=== PATIENT | male | born 1960 | race Caucasian/White ===

== ENCOUNTER 2017-10-31 08:59 | Day surgery (SDC) | payer BC ==
[~2017-10-31 08:59] MED LIST: Lactated Ringers 1,000 ML IV SCH; Sodium Chloride 0.9% 10 ML Syringe FLUSH PRN; Sodium Chloride 0.9% 2.5 ML Syringe FLUSH PRN; ceFAZolin 1 GM in Premix Bag 1 BAG IV ONE
--- NOTE | 2017-10-31 09:58 | PCM.PREANE ---
Preanesthetic Assessment - Anesthesia/Transfusion/Family Hx Anesthesia History: Prior Anesthesia Without Reaction Other Type of Anesthesia Reaction Comment: "broken teeth during anesthesia, bit down on tube to hard" Family History of Anesthesia Reaction: No Transfusion History: No Prior Transfusion(s) - Review of Systems General: No Symptoms Pulmonary: No Symptoms Cardiovascular: No Symptoms Gastrointestinal: No Symptoms Neurological: No Symptoms Other: Reports: None - Physical Assessment Height: 1.8 m Weight: 91.172 kg ASA Class: 2 Airway Class: Mallampati = 2 Dentition: Reports: Broken Tooth/Teeth, Missing Tooth/Teeth Lungs: Clear to Auscultation, Normal Respiratory Effort Cardiovascular: Regular Rate, Regular Rhythm - Allergies Allergies/Adverse Reactions: Allergies Allergy/AdvReac Type Severity Reaction Status Date / Time No Known Allergies Allergy Verified 10/05/16 08:03 - Anesthesia Plan Pre-Op Medication Ordered: None - Acknowledgements Anesthesia Type Planned: General Anesthesia Pt an Appropriate Candidate for the Planned Anesthesia: Yes Alternatives and Risks of Anesthesia Discussed w Pt/Guardian: Yes Pt/Guardian Understands and Agrees with Anesthesia Plan: Yes PreAnesthesia Questionnaire - Past Health History Medical/Surgical History: Denies Medical/Surgical History HEENT History: Reports: Hard of Hearing, Other (See Below) Other HEENT History: Teeth some caps 'on pretty good' my teeth have some problems, with broken tooth during first two anesthesias ( one porcelan cap one decayded tooth), Poor Hearing RIGHT Cardiovascular History: Reports: None Respiratory History: Reports: SOB Other Respiratory History: REports 40 year history of smoking, currently smokes 5 to 7 cigarettes per day, "trying to cut back" states had pneumonia on Oct 23 2016 Gastrointestinal History: Reports: GERD, Other (See Below) Other Gastrointestinal History: Occasional heartburn treat with TUMS Genitourinary History: Reports: Hydronephrosis, Other (See Below) Other Genitourinary History: cancer of rt renal calyx, transitional cell carcinoma of ureter Musculoskeletal History: Reports: Fracture Other Musculoskeletal History: Fracture to Spine ("elvis area was broken off") Neurological History: Reports: TIA Other Neuro History: "TIA x2 in 2015" Psychiatric History: Reports: Addiction Other Psychiatric History: Reports 30 yr recovery from Cocaine addiction Endocrine/Metabolic History: Reports: None Hematologic History: Reports: None Immunologic History: Reports: None Oncologic (Cancer) History: Reports: Other (See Below) Other Oncologic History: Ureteral Tumor Path report 02/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, Grade II/III, cancer of rt renal calyx Dermatologic History: Reports: None - Infectious Disease History Infectious Disease History: Reports: None - Past Surgical History Head Surgeries/Procedures: Reports: None Male Surgical History: Reports: Other (See Below) Other Male Surgeries/Procedures: Placement of Right Nephroureteral Stent, 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, cysto and ureterosocpy on rt in october 2016, states multiple cystoscopies and ureteroscopies - SUBSTANCE USE Smoking Status *Q: Current Every Day Smoker Tobacco Use Within Last Twelve Months: Cigarettes Second Hand Smoke Exposure: No Days Per Week of Alcohol Use: 0 Number of Drinks Per Day: 1 Total Drinks Per Week: 0 Recreational Drug Use History: No Recreational Drug Type: Reports: Cocaine Recreational Drug Last Use: 30 years ago, been recovering - HOME MEDS Home Medications: Home Meds Aspirin [Aspirin EC] 81 mg PO ACBREAKFAST #30 tablet. 10/06/16 [Rx] Calcium Carbonate [Tums] 1 tab.chew CHEW ASDIRECTED PRN 11/17/16 [History] - CURRENT (IN HOUSE) MEDS Current Meds: Current Medications Lactated Ringer's (Ringers, Lactated) 1,000 mls @ 100 mls/hr IV ASDIRECTED [facility] Sodium Chloride (Saline Flush) 10 ml FLUSH ASDIRECTED PRN PRN Reason: Keep Vein Open Sodium Chloride (Saline Flush) 2.5 ml FLUSH ASDIRECTED PRN PRN Reason: Keep Vein Open Discontinued Medications Cefazolin Sodium/Dextrose 1 gm (/ Premix) 50 mls @ 100 mls/hr IV ONCALL ONE Stop: 10/31/17 07:29
[2017-10-31] MEDS ORDERED: Midazolam 1 MG/ML 2 ML SDV ONE (11:23)
[2017-10-31] MEDS ORDERED: Lidocaine 2% 5 ML SDV ONE (11:23)
[2017-10-31] MEDS ORDERED: fentaNYL 250 MCG/5 ML SDV ONE (11:23)
[2017-10-31] MEDS ORDERED: Propofol 200 MG/20 ML SDV ONE ×3 (11:23→12:47)
[2017-10-31] MEDS ORDERED: Iopamidol 408 MG/ML 50 ML SDV ONE (11:33)
[2017-10-31] MEDS ORDERED: Rocuronium 10 MG/ML 10 ML Syringe ONE (12:04)
[2017-10-31] MEDS ORDERED: Neostigmine Methylsulfate 1 MG/ML 5 ML Syringe ONE (12:04)
[2017-10-31] MEDS ORDERED: Sugammadex Sodium 200 MG/2 ML VIAL ONE (13:27)
--- NOTE | 2017-10-31 14:56 | PCM.POSTAN ---
POST ANESTHESIA ASSESSMENT - MENTAL STATUS Mental Status: Alert, Oriented - RESPIRATORY Respiratory Status: Respiratory Rate WNL, Airway Patent, O2 Saturation Stable - CARDIOVASCULAR CV Status: Pulse Rate WNL, Blood Pressure Stable - GASTROINTESTINAL GI Status: No Symptoms - POST OP HYDRATION Hydration Status: Adequate & Stable
--- NOTE | 2017-10-31 14:57 | PCM48HPAN ---
Post Anesthesia Note - EVALUATION WITHIN 48HRS OF ANESTHETIC Vital Signs in Normal Range: Yes Patient Participated in Evaluation: Yes Respiratory Function Stable: Yes Airway Patent: Yes Cardiovascular Function Stable: Yes Hydration Status Stable: Yes Pain Control Satisfactory: Yes Nausea and Vomiting Control Satisfactory: Yes Mental Status Recovered: Yes
[2017-10-31 15:53] VITALS: BP 123/65
--- NOTE | 2017-10-31 16:28 | CR ---
EXAMINATION: Ureteral stent insertion HISTORY: Bladder tumor COMPARISON: CT dated 10/24/2017 TECHNIQUE: Single fluoroscopic image provided FINDINGS/IMPRESSION: Single fluoroscopic image demonstrates a partial visualized right ureteral stent .
--- NOTE | 2017-10-31 21:03 | OR ---
SURGEON: Saurabh Davis M.D. DATE OF PROCEDURE: 10/31/2017 PREOPERATIVE DIAGNOSES: History of ureteral and right renal pelvis tumors and history of bladder tumors. POSTOPERATIVE DIAGNOSES: History of ureteral and right renal pelvis tumors and history of bladder tumors. OPERATION PERFORMED: Cystoscopy, right ureteroscopy, right renoscopy, tumor ablation of ureteral tumors, biopsy of right renal pelvis tumor and partial ablation. DESCRIPTION OF PROCEDURE: The patient was given general anesthesia, placed in dorsal lithotomy position, prepped and draped in sterile drapes. Cystourethroscopy was done, showed multiple papillary bladder tumors. Ureteroscopy was done alongside the guidewire that was placed in. The right ureter had three papillary tumors that were destroyed using the ureteroscopic Bugbee electrode. The flexible ureteroscope was then advanced in the right ureter all the way up into the renal pelvis, which showed a mid calyceal papillary tumor. Pictures of that were taken and biopsy was done. Attempts at fulgurating the tumor were not adequate. With that done, a 7-[place] 26 centimeter double-J stent was placed in. The bladder tumors were then either resected or fulgurated. The bladder was emptied and the patient was moved to recovery room in good condition. PLAN: I will see him next week. The specimens that were submitted to pathology was urine cytology from the right renal pelvis, renal pelvis tumor biopsy, and bladder tumors. The plan is to start mitomycin therapy in the bladder by having the double-J stent in. The treatment should reach the renal pelvis. We will repeat the studies in three months. BALDO / RED /[id number]
== END 2017-10-31 15:30 | disposition home or self-care (01) ==
LOC: MW.SDS 08:59
PROVIDERS: ATTEND Urology
DX: C65.1 Malignant neoplasm of right renal pelvis (principal); C67.9 Malignant neoplasm of bladder, unspecified; R31.0 Gross hematuria; R35.1 Nocturia; F17.210 Nicotine dependence, cigarettes, uncomplicated; K21.9 Gastro-esophageal reflux disease without esophagitis; C66.1 Malignant neoplasm of right ureter; Z79.82 Long term (current) use of aspirin; Z86.73 Personal history of transient ischemic attack (TIA), and cerebral infarction without residual deficits; Z98.890 Other specified postprocedural states
CPT/HCPCS: 52354; 76000; C1769; C1874; C9399; J0690; J2250; J3010; J7120; Q9966; 00910; 88305; J2704

== ENCOUNTER 2018-02-13 07:29 | Day surgery (SDC) | payer BC ==
[~2018-02-13 07:29] MED LIST changes: -Sodium Chloride 0.9% 10 ML Syringe FLUSH PRN; +ceFAZolin 1 GM in Premix Bag 1 BAG IV SCH
[2018-02-13] MEDS ORDERED: Iopamidol 408 MG/ML 50 ML SDV ONE (07:32)
--- NOTE | 2018-02-13 07:58 | PCM.PREANE ---
Preanesthetic Assessment - Anesthesia/Transfusion/Family Hx Anesthesia History: Prior Anesthesia Without Reaction Other Type of Anesthesia Reaction Comment: "broken teeth during anesthesia, bit down on tube to hard" Family History of Anesthesia Reaction: No Transfusion History: No Prior Transfusion(s) - Review of Systems General: No Symptoms Pulmonary: No Symptoms Cardiovascular: No Symptoms Gastrointestinal: No Symptoms Neurological: No Symptoms Other: Reports: None - Physical Assessment NPO Status Date: 02/12/18 Height: 1.8 m Weight: 91.172 kg ASA Class: 2 Airway Class: Mallampati = 2 Dentition: Reports: Missing Tooth/Teeth ROM/Head Extension: Full Lungs: Clear to Auscultation, Normal Respiratory Effort Cardiovascular: Regular Rate, Regular Rhythm - Allergies Allergies/Adverse Reactions: Allergies Allergy/AdvReac Type Severity Reaction Status Date / Time No Known Allergies Allergy Verified 02/02/18 10:21 - Anesthesia Plan Pre-Op Medication Ordered: None - Acknowledgements Anesthesia Type Planned: General Anesthesia Pt an Appropriate Candidate for the Planned Anesthesia: Yes Alternatives and Risks of Anesthesia Discussed w Pt/Guardian: Yes Pt/Guardian Understands and Agrees with Anesthesia Plan: Yes Additional Comments: Has GERD, uses Zantac. PreAnesthesia Questionnaire - Past Health History Medical/Surgical History: Denies Medical/Surgical History HEENT History: Reports: Hard of Hearing, Other (See Below) Other HEENT History: Teeth some caps 'on pretty good' my teeth have some problems, with broken teeth during first two anesthesias ( one porcelan cap one decayded tooth), Poor Hearing RIGHT Cardiovascular History: Reports: None Respiratory History: Reports: SOB Other Respiratory History: REports 40 year history of smoking, currently smokes 5 to 7 cigarettes per day, "trying to cut back" states had pneumonia on Oct 23 2016 Gastrointestinal History: Reports: GERD, Other (See Below) Other Gastrointestinal History: Occasional heartburn treat with zantac Genitourinary History: Reports: Hydronephrosis, Other (See Below) Other Genitourinary History: cancer of rt renal calyx, transitional cell carcinoma of ureter Musculoskeletal History: Reports: Fracture Other Musculoskeletal History: Fracture to Spine ("elvis area was broken off") Neurological History: Reports: TIA Other Neuro History: "TIA x2 in 2016" Psychiatric History: Reports: Addiction Other Psychiatric History: Reports 30 yr recovery from Cocaine addiction Endocrine/Metabolic History: Reports: None Hematologic History: Reports: None Immunologic History: Reports: None Oncologic (Cancer) History: Reports: Bladder, Other (See Below) Other Oncologic History: Ureteral Tumor Path report 02/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, Grade II/III, cancer of rt renal calyx Dermatologic History: Reports: None - Infectious Disease History Infectious Disease History: Reports: None - Past Surgical History Head Surgeries/Procedures: Reports: None Male Surgical History: Reports: TURBT-Transurethral Resection of Bladder Tumor, Other (See Below) Other Male Surgeries/Procedures: Placement of Right Nephroureteral Stent, 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, cysto and ureterosocpy on rt in october 2016, states multiple cystoscopies and ureteroscopies - SUBSTANCE USE Smoking Status *Q: Current Every Day Smoker Tobacco Use Within Last Twelve Months: Cigarettes Second Hand Smoke Exposure: No Days Per Week of Alcohol Use: 0 Number of Drinks Per Day: 1 Total Drinks Per Week: 0 Recreational Drug Use History: Yes Recreational Drug Type: Reports: Cocaine Recreational Drug Last Use: 30 years ago, been recovering - HOME MEDS Home Medications: Home Meds Aspirin [Aspirin EC] 81 mg PO ACBREAKFAST #30 tablet. 10/06/16 [Rx] Ibuprofen 4 tab PO ASDIRECTED PRN 02/02/18 [History] Ranitidine HCl [Zantac] 1 tab PO ASDIRECTED PRN 02/02/18 [History] - CURRENT (IN HOUSE) MEDS Current Meds: Current Medications Cefazolin Sodium/Dextrose 1 gm (/ Premix) 50 mls @ 100 mls/hr IV Q8H [facility] Lactated Ringer's (Ringers, Lactated) 1,000 mls @ 100 mls/hr IV ASDIRECTED [facility] Last Admin: 02/13/18 07:45 Dose: 100 mls/hr Sodium Chloride (Saline Flush) 2.5 ml FLUSH ASDIRECTED PRN PRN Reason: Keep Vein Open Discontinued Medications Iopamidol (Isovue-200 (41%)) Confirm Administered Dose 50 ml .ROUTE .STK-MED ONE Stop: 02/13/18 07:33
[2018-02-13] MEDS ORDERED: Lidocaine 2% 5 ML SDV ONE (08:29)
[2018-02-13] MEDS ORDERED: Ondansetron 4 MG/2 ML SDV ONE (08:29)
[2018-02-13] MEDS ORDERED: Propofol 200 MG/20 ML SDV ONE (08:30)
[2018-02-13] MEDS ORDERED: fentaNYL 100 MCG/2 ML SDV ONE ×2 (08:30→09:58)
[2018-02-13] MEDS ORDERED: Midazolam 1 MG/ML 2 ML SDV ONE (08:30)
[2018-02-13] MEDS ORDERED: ceFAZolin/Dextrose,Iso-Osmotic 2 GM/50 ML Duplex Bag IV ONE (09:06)
[2018-02-13] MEDS ORDERED: fentaNYL 100 MCG/2 ML SDV IVPUSH PRN (09:06)
[2018-02-13] MEDS ORDERED: Rocuronium 10 MG/ML 10 ML Syringe ONE (09:25)
[2018-02-13] MEDS ORDERED: Dexamethasone 4 MG/ML 5 ML MDV ONE (09:25)
[2018-02-13] MEDS ORDERED: Succinylcholine 200 MG/10 ML MDV ONE (09:25)
[2018-02-13] MEDS ORDERED: ePHEDrine 50 MG/ML SDV ONE (09:29)
[2018-02-13] MEDS ORDERED: Glycopyrrolate 0.2 MG/ML SDV ONE (09:59)
[2018-02-13] MEDS ORDERED: Neostigmine Methylsulfate 1 MG/ML 5 ML Syringe ONE (09:59)
[2018-02-13] MEDS ORDERED: Sugammadex Sodium 200 MG/2 ML VIAL ONE (10:04)
--- NOTE | 2018-02-13 10:48 | PCM48HPAN ---
Post Anesthesia Note - EVALUATION WITHIN 48HRS OF ANESTHETIC Vital Signs in Normal Range: Yes Patient Participated in Evaluation: Yes Respiratory Function Stable: Yes Airway Patent: Yes Cardiovascular Function Stable: Yes Hydration Status Stable: Yes Pain Control Satisfactory: Yes Nausea and Vomiting Control Satisfactory: Yes Mental Status Recovered: Yes Resp Rate: 16
[2018-02-13 11:13] VITALS: BP 102/64
--- NOTE | 2018-02-13 13:18 | OR ---
SURGEON: Saurabh Davis M.D. DATE OF PROCEDURE: 02/13/2018 PREOPERATIVE DIAGNOSIS: Papillary right renal pelvis tumor, about 1 cm. POSTOPERATIVE DIAGNOSIS: Papillary right renal pelvis tumor, about 1 cm. OPERATION: Cystoscopy, double-J stent removal, and renoscopy with tumor ablation using the Bugbee electrode. DESCRIPTION OF PROCEDURE: The patient is placed in dorsal lithotomy position. After adequate general anesthesia, cystourethroscopy was done. The inside of the bladder was examined, showed no recurrent tumors. The double-J stent was removed. A guidewire was advanced in the right ureter over which the flexible ureteroscope was advanced down in the renal pelvis, the tumor was identified and ablated using coagulating electrode. With that done, the procedure was terminated and the bladder was emptied and the patient was moved to recovery room in good condition. BALDO MOON /[id number]
--- NOTE | 2018-02-13 16:24 | CR ---
EXAMINATION: Retrograde pyelogram HISTORY: Ureteroscopy COMPARISON: CT dated 10/24/2017 TECHNIQUE: Single fluoroscopic image provided. FINDINGS/IMPRESSION: Operative control films demonstrate opacification of the right renal collecting system which appears moderately dilated.
== END 2018-02-13 11:20 | disposition home or self-care (01) ==
LOC: MW.SDS 07:29
PROVIDERS: ATTEND Urology
DX: D41.11 Neoplasm of uncertain behavior of right renal pelvis (principal); Z79.82 Long term (current) use of aspirin
CPT/HCPCS: 52354; 76000; J0330; J0690; J1100; J2250; J2405; J3010; J3490; J7120; Q9966; 00912; C1769; J2704

== ENCOUNTER 2018-05-15 06:38 | Day surgery (SDC) | payer BC ==
[~2018-05-15 06:38] MED LIST changes: +Sodium Chloride 0.9% 10 ML Syringe FLUSH PRN; +ceFAZolin 1 GM Vial IM ONE; -ceFAZolin 1 GM in Premix Bag 1 BAG IV ONE; -ceFAZolin 1 GM in Premix Bag 1 BAG IV SCH
[2018-05-15] MEDS ORDERED: Propofol 200 MG/20 ML SDV ONE (07:03)
[2018-05-15] MEDS ORDERED: Lidocaine 2% 5 ML SDV ONE (07:03)
[2018-05-15] MEDS ORDERED: Ondansetron 4 MG/2 ML SDV ONE (07:03)
[2018-05-15] MEDS ORDERED: fentaNYL 250 MCG/5 ML SDV ONE (07:04)
[2018-05-15] MEDS ORDERED: Midazolam 1 MG/ML 2 ML SDV ONE (07:04)
[2018-05-15] MEDS ORDERED: Iopamidol 408 MG/ML 50 ML SDV ONE (07:26)
--- NOTE | 2018-05-15 07:55 | PCM.PREANE ---
Preanesthetic Assessment - Anesthesia/Transfusion/Family Hx Anesthesia History: Prior Anesthesia Without Reaction Other Type of Anesthesia Reaction Comment: "broken teeth during anesthesia, bit down on tube to hard" Transfusion History: No Prior Transfusion(s) - Review of Systems General: No Symptoms Pulmonary: No Symptoms Cardiovascular: No Symptoms Gastrointestinal: No Symptoms Neurological: No Symptoms Other: Reports: None - Physical Assessment NPO Status Date: 05/14/18 NPO Status Time: 21:00 O2 Sat by Pulse Oximetry: 96 Respiratory Rate: 16 Vital Signs: Last Vital Signs Temp 97.5 F 05/15/18 07:05 Pulse 61 05/15/18 07:05 Resp 16 05/15/18 07:05 BP 115/79 05/15/18 07:05 Pulse Ox 96 05/15/18 07:05 Height: 5 ft 11 in Weight: 89.811 kg ASA Class: 2 Mental Status: Alert & Oriented x3 Airway Class: Mallampati = 2 Dentition: Reports: Missing Tooth/Teeth Thyro-Mental Finger Breadths: 3 Mouth Opening Finger Breadths: 3 ROM/Head Extension: Full Lungs: Clear to Auscultation, Normal Respiratory Effort Cardiovascular: Regular Rate, Regular Rhythm - Allergies Allergies/Adverse Reactions: Allergies Allergy/AdvReac Type Severity Reaction Status Date / Time No Known Allergies Allergy Verified 05/10/18 10:09 - Acknowledgements Anesthesia Type Planned: General Anesthesia Pt an Appropriate Candidate for the Planned Anesthesia: Yes Alternatives and Risks of Anesthesia Discussed w Pt/Guardian: Yes Pt/Guardian Understands and Agrees with Anesthesia Plan: Yes PreAnesthesia Questionnaire - Past Health History Medical/Surgical History: Denies Medical/Surgical History HEENT History: Reports: Hard of Hearing, Other (See Below) Other HEENT History: Teeth some caps 'on pretty good' my teeth have some problems, with broken teeth during first two anesthesias ( one porcelan cap one decayded tooth), Poor Hearing RIGHT Cardiovascular History: Reports: None Respiratory History: Reports: SOB Other Respiratory History: Reports 40 year history of smoking, states had pneumonia on Oct 23 2016 Gastrointestinal History: Reports: GERD, Other (See Below) Other Gastrointestinal History: Occasional heartburn treat with zantac Genitourinary History: Reports: Other (See Below) Other Genitourinary History: cancer of rt renal calyx, transitional cell carcinoma of ureter Musculoskeletal History: Reports: Fracture Other Musculoskeletal History: Fracture to Spine ("elvis area was broken off") Neurological History: Reports: TIA, Other (See Below) Other Neuro History: "TIA x2 in 2016"- states no residual (was Left side affect) , states has motion sickness on a boat Psychiatric History: Reports: None Endocrine/Metabolic History: Reports: None Hematologic History: Reports: None Immunologic History: Reports: None Oncologic (Cancer) History: Reports: Bladder, Other (See Below) Other Oncologic History: states cancer in kidney, bladder, and ureter Dermatologic History: Reports: None - Infectious Disease History Infectious Disease History: Reports: None - Past Surgical History Head Surgeries/Procedures: Reports: None Male Surgical History: Reports: TURBT-Transurethral Resection of Bladder Tumor, Other (See Below) Other Male Surgeries/Procedures: Placement of Right Nephroureteral Stent, 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, cysto and ureterosocpy on rt in october 2016, states multiple cystoscopies and ureteroscopies - SUBSTANCE USE Smoking Status *Q: Current Every Day Smoker Tobacco Use Within Last Twelve Months: Cigarettes Recreational Drug Use History: No - HOME MEDS Home Medications: Home Meds Aspirin [Aspirin EC] 81 mg PO ACBREAKFAST #30 tablet. 10/06/16 [Rx] Ranitidine HCl [Zantac] 150 mg PO ASDIRECTED PRN 02/02/18 [History] - CURRENT (IN HOUSE) MEDS Current Meds: Current Medications Lactated Ringer's (Ringers, Lactated) 1,000 mls @ 100 mls/hr IV ASDIRECTED [facility] Last Admin: 05/15/18 07:13 Dose: 100 mls/hr Sodium Chloride (Saline Flush) 10 ml FLUSH ASDIRECTED PRN PRN Reason: Keep Vein Open Sodium Chloride (Saline Flush) 2.5 ml FLUSH ASDIRECTED PRN PRN Reason: Keep Vein Open Discontinued Medications Cefazolin Sodium (Ancef) 1 gm IM ONCALL ONE Stop: 05/15/18 00:02 Fentanyl (Sublimaze) Confirm Administered Dose 250 mcg .ROUTE .STK-MED ONE Stop: 05/15/18 07:05 Iopamidol (Isovue-200 (41%)) Confirm Administered Dose 50 ml .ROUTE .STK-MED ONE Stop: 05/15/18 07:27 Lidocaine (Xylocaine-Mpf 2%) Confirm Administered Dose 5 ml .ROUTE .STK-MED ONE Stop: 05/15/18 07:04 Midazolam HCl (Versed 1 Mg/Ml) Confirm Administered Dose 2 mg .ROUTE .STK-MED ONE Stop: 05/15/18 07:05 Ondansetron HCl (Zofran) Confirm Administered Dose 4 mg .ROUTE .STK-MED ONE Stop: 05/15/18 07:04 Propofol (Diprivan 20 Ml) Confirm Administered Dose 200 mg .ROUTE .STK-MED ONE Stop: 05/15/18 07:04
[2018-05-15] MEDS ORDERED: Rocuronium 10 MG/ML 10 ML Syringe ONE (08:11)
[2018-05-15] MEDS ORDERED: Sodium Chloride 0.9% 20 ML ONE (08:26)
[2018-05-15] MEDS ORDERED: ceFAZolin 1 GM Vial ONE (08:26)
[2018-05-15] MEDS ORDERED: fentaNYL 100 MCG/2 ML SDV IVPUSH PRN (08:35)
[2018-05-15] MEDS ORDERED: Glycopyrrolate 0.2 MG/ML SDV ONE ×2 (08:39→08:58)
[2018-05-15] MEDS ORDERED: Phenylephrine/Normal Saline 100 MCG/ML 10 ML Syringe ONE (08:42)
[2018-05-15] MEDS ORDERED: ePHEDrine 50 MG/ML SDV ONE (08:44)
[2018-05-15] MEDS ORDERED: Neostigmine Methylsulfate 1 MG/ML 5 ML Syringe ONE (08:58)
[2018-05-15 10:31] VITALS: BP 128/74
--- NOTE | 2018-05-15 11:07 | PCM48HPAN ---
Post Anesthesia Note - EVALUATION WITHIN 48HRS OF ANESTHETIC Vital Signs in Normal Range: Yes Patient Participated in Evaluation: Yes Respiratory Function Stable: Yes Airway Patent: Yes Cardiovascular Function Stable: Yes Hydration Status Stable: Yes Pain Control Satisfactory: Yes Nausea and Vomiting Control Satisfactory: Yes Mental Status Recovered: Yes Resp Rate: 14
--- NOTE | 2018-05-15 12:14 | OR ---
SURGEON: Saurabh Davis M.D. DATE OF PROCEDURE: 05/15/2018 PREOPERATIVE DIAGNOSIS: History of right renal pelvis tumor, treated conservatively. POSTOPERATIVE DIAGNOSIS: History of right renal pelvis tumor, treated conservatively. OPERATION: Renoscopy, fulguration of small satellite tumors. DESCRIPTION OF THE PROCEDURE: Patient was given general anesthesia. He was in dorsal lithotomy position, prepped and draped in sterile drapes. Cystourethroscopy was done. A guidewire was advanced in the right ureter all the way up into the renal pelvis. The rigid ureteroscope was also advanced alongside the guidewire into the renal pelvis, but was not helpful to see concealed structures, so another guidewire was advanced through that and the rigid ureteroscope was removed. The flexible ureteroscope was advanced over the second guidewire all the way up into the renal pelvis. Visualization was adequate. Isovue was then injected through the scope into the renal pelvis looking for filling defects, none were found. The midpole calyx where the tumor was previously found was inspected and showed a few small, flat papillary areas. These were fulgurated using the Bugbee electrode. With that done, the ureteroscope was removed. The guidewire was removed. The bladder was emptied and the patient was moved to recovery room in good condition. BALDO / RED /[id number]
--- NOTE | 2018-05-15 16:25 | CR ---
EXAMINATION: Ureteroscopy HISTORY: Ureteroscopy COMPARISON: 02/13/2018 TECHNIQUE: 3 operative control films provided. FINDINGS/IMPRESSION: Fluoroscopic imaging demonstrates a moderately dilated proximal right renal robin ecting system without a definite filling defect.
== END 2018-05-15 11:00 | disposition home or self-care (01) ==
LOC: MW.SDS 06:38
PROVIDERS: ATTEND Urology
DX: C65.1 Malignant neoplasm of right renal pelvis (principal); F17.210 Nicotine dependence, cigarettes, uncomplicated; Z79.82 Long term (current) use of aspirin; Z98.890 Other specified postprocedural states; K21.9 Gastro-esophageal reflux disease without esophagitis
CPT/HCPCS: 52354; 76000; C1769; J0690; J2250; J2370; J2405; J2704; J3010; J3490; J7120; Q9966; 00912

== ENCOUNTER 2018-11-06 11:18 | Day surgery (SDC) | payer BC ==
--- NOTE | 2018-10-23 09:21 | PCM.PREANE ---
Preanesthetic Assessment - Procedure Proposed Procedure: EGD and colonoscopy with possible biopsies - Anesthesia/Transfusion/Family Hx Anesthesia History: Prior Anesthesia Without Reaction (claims broken teeth with first 2 anesthetics due to biting down too hard on tube when waking up) Other Type of Anesthesia Reaction Comment: "broken teeth during anesthesia, bit down on tube to hard" Family History of Anesthesia Reaction: No Transfusion History: No Prior Transfusion(s) - Review of Systems General: No Symptoms (history of vertebral fracture (part of spine broke off)) Pulmonary: Shortness of Breath (smoker, copd, pneumonia 2017 (resolved)) Gastrointestinal: Nausea, Other (GERD, uses prn tums) Neurological: No Symptoms (hardof hearing. History of cocaine abuse--clean for 30 years.), Other (TIA x 2 in 2016 with leg heaviness--resolved in a few days. No residuals.) Other: Reports: None (history of hematuria. 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 under [place] without problems other than first 2 ( bit down too hard on ETT and popped caps)), Depression (depression in the past) - Physical Assessment Height: 1.8 m Weight: 90.265 kg ASA Class: 2 - Lab Values: CBC from 12/01/17 was wnl - Imaging/EKG Impressions: EKG from 07/10 shows NSR - Allergies Allergies/Adverse Reactions: Allergies Allergy/AdvReac Type Severity Reaction Status Date / Time No Known Allergies Allergy Verified 10/18/18 14:14 PreAnesthesia Questionnaire - Past Health History Medical/Surgical History: Denies Medical/Surgical History HEENT History: Reports: Hard of Hearing, Other (See Below) Other HEENT History: Teeth some caps 'on pretty good' my teeth have some problems, with broken teeth during first two anesthesias ( one porcelan cap one decayded tooth), Poor Hearing RIGHT Cardiovascular History: Reports: High Cholesterol Respiratory History: Reports: SOB Other Respiratory History: Reports 40 year history of smoking, states had pneumonia on Oct 23 2016 Gastrointestinal History: Reports: GERD, Other (See Below) Other Gastrointestinal History: Occasional heartburn treat with tums Genitourinary History: Reports: Other (See Below) Other Genitourinary History: cancer of rt renal calyx, transitional cell carcinoma of ureter Musculoskeletal History: Reports: Fracture Other Musculoskeletal History: Fracture to Spine ("elvis area was broken off") Neurological History: Reports: Concussion, TIA, Other (See Below) Other Neuro History: "TIA x2 in 2016"- states no residual (was Left side affect) , states has motion sickness on a boat Psychiatric History: Reports: Depression Other Psychiatric History: depression in the past after cancer diagnosis, none recently Endocrine/Metabolic History: Reports: None Hematologic History: Reports: None Immunologic History: Reports: None Oncologic (Cancer) History: Reports: Bladder, Other (See Below) Other Oncologic History: states cancer in kidney, bladder, and ureter Dermatologic History: Reports: None - Infectious Disease History Infectious Disease History: Reports: None - Past Surgical History Head Surgeries/Procedures: Reports: None Male Surgical History: Reports: TURBT-Transurethral Resection of Bladder Tumor, Other (See Below) Other Male Surgeries/Procedures: Placement of Right Nephroureteral Stent, 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, cysto and ureterosocpy on rt in october 2016, states multiple cystoscopies and ureteroscopies - SUBSTANCE USE Smoking Status *Q: Current Every Day Smoker Tobacco Use Within Last Twelve Months: Cigarettes Recreational Drug Use History: No - HOME MEDS Home Medications: Home Meds Calcium Carbonate [Tums] 500 mg CHEW ASDIRECTED PRN 09/27/18 [History] Doxycycline [Vibramycin] 100 mg PO BID 09/27/18 [History] Rosuvastatin Calcium 10 mg PO DAILY 09/27/18 [History] - CURRENT (IN HOUSE) MEDS Current Meds: Current Medications Lactated Ringer's (Ringers, Lactated) 1,000 mls @ 125 mls/hr IV ASDIRECTED [facility] Sodium Chloride (Saline Flush) 10 ml FLUSH ASDIRECTED PRN PRN Reason: Keep Vein Open Sodium Chloride (Saline Flush) 2.5 ml FLUSH ASDIRECTED PRN PRN Reason: Keep Vein Open Sodium Chloride (Saline Flush) 10 ml FLUSH ASDIRECTED PRN PRN Reason: Keep Vein Open Sodium Chloride (Saline Flush) 2.5 ml FLUSH ASDIRECTED PRN PRN Reason: Keep Vein Open
[~2018-11-06 11:18] MED LIST changes: -ceFAZolin 1 GM Vial IM ONE
--- NOTE | 2018-11-06 12:11 | PCM.PREANE ---
Preanesthetic Assessment - Anesthesia/Transfusion/Family Hx Anesthesia History: Prior Anesthesia Without Reaction Other Type of Anesthesia Reaction Comment: "broken teeth during anesthesia, bit down on tube to hard" Family History of Anesthesia Reaction: No Transfusion History: No Prior Transfusion(s) - Review of Systems General: No Symptoms Pulmonary: No Symptoms Cardiovascular: No Symptoms Gastrointestinal: No Symptoms Neurological: No Symptoms Other: Reports: None (history of hematuria. 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 under [place] without problems other than first 2 ( bit down too hard on ETT and popped caps)), Depression (depression in the past) - Physical Assessment NPO Status Date: 11/05/18 O2 Sat by Pulse Oximetry: 95 Respiratory Rate: 16 Vital Signs: Last Vital Signs Temp 36.2 C 11/06/18 11:41 Pulse 75 11/06/18 11:41 Resp 16 11/06/18 11:41 BP 123/82 11/06/18 11:41 Pulse Ox 95 11/06/18 11:41 Height: 1.8 m Weight: 90.265 kg ASA Class: 2 Mental Status: Alert & Oriented x3 Airway Class: Mallampati = 1 Dentition: Reports: Normal Dentition ROM/Head Extension: Full Lungs: Clear to Auscultation, Normal Respiratory Effort Cardiovascular: Regular Rate, Regular Rhythm - Allergies Allergies/Adverse Reactions: Allergies Allergy/AdvReac Type Severity Reaction Status Date / Time No Known Allergies Allergy Verified 11/01/18 10:33 - Blood Blood Available: No - Anesthesia Plan Pre-Op Medication Ordered: None - Acknowledgements Anesthesia Type Planned: MAC Pt an Appropriate Candidate for the Planned Anesthesia: Yes Alternatives and Risks of Anesthesia Discussed w Pt/Guardian: Yes Pt/Guardian Understands and Agrees with Anesthesia Plan: Yes Additional Comments: PMH: uri 4 weeks ago-sx resolved, smoker, occ dyspepsia/gerd. 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 PLAN: MAC/TIVA PreAnesthesia Questionnaire - Past Health History Medical/Surgical History: Denies Medical/Surgical History HEENT History: Reports: Hard of Hearing, Other (See Below) Other HEENT History: Teeth some caps 'on pretty good' my teeth have some problems, with broken teeth during first two anesthesias ( one porcelan cap one decayded tooth), Poor Hearing RIGHT Cardiovascular History: Reports: High Cholesterol Respiratory History: Reports: SOB Other Respiratory History: Reports 40 year history of smoking, states had pneumonia on Oct 23 2016 Gastrointestinal History: Reports: GERD, Other (See Below) Other Gastrointestinal History: Occasional heartburn treat with tums Genitourinary History: Reports: Other (See Below) Other Genitourinary History: cancer of rt renal calyx, transitional cell carcinoma of ureter Musculoskeletal History: Reports: Fracture Other Musculoskeletal History: Fracture to Spine ("elvis area was broken off") Neurological History: Reports: Concussion, TIA, Other (See Below) Other Neuro History: "TIA x2 in 2016"- states no residual (was Left side affect) , states has motion sickness on a boat Psychiatric History: Reports: Depression Other Psychiatric History: depression in the past after cancer diagnosis, none recently Endocrine/Metabolic History: Reports: None Hematologic History: Reports: None Immunologic History: Reports: None Oncologic (Cancer) History: Reports: Bladder, Other (See Below) Other Oncologic History: states cancer in kidney, bladder, and ureter Dermatologic History: Reports: None - Infectious Disease History Infectious Disease History: Reports: None - Past Surgical History Head Surgeries/Procedures: Reports: None Male Surgical History: Reports: TURBT-Transurethral Resection of Bladder Tumor, Other (See Below) Other Male Surgeries/Procedures: '2014 Placement of Right Nephroureteral Stent, 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, cysto and ureterosocpy on rt in october 2016, states multiple cystoscopies and ureteroscopies - SUBSTANCE USE Smoking Status *Q: Current Every Day Smoker Tobacco Use Within Last Twelve Months: Cigarettes Recreational Drug Use History: No - HOME MEDS Home Medications: Home Meds Calcium Carbonate [Tums] 500 mg CHEW ASDIRECTED PRN 09/27/18 [History] Doxycycline [Vibramycin] 100 mg PO BID 09/27/18 [History] Rosuvastatin Calcium 10 mg PO DAILY 09/27/18 [History] - CURRENT (IN HOUSE) MEDS Current Meds: Current Medications Lactated Ringer's (Ringers, Lactated) 1,000 mls @ 125 mls/hr IV ASDIRECTED [facility] Last Admin: 11/06/18 11:51 Dose: 125 mls/hr Sodium Chloride (Saline Flush) 10 ml FLUSH ASDIRECTED PRN PRN Reason: Keep Vein Open Sodium Chloride (Saline Flush) 2.5 ml FLUSH ASDIRECTED PRN PRN Reason: Keep Vein Open Sodium Chloride (Saline Flush) 10 ml FLUSH ASDIRECTED PRN PRN Reason: Keep Vein Open Sodium Chloride (Saline Flush) 2.5 ml FLUSH ASDIRECTED PRN PRN Reason: Keep Vein Open
[2018-11-06] MEDS ORDERED: fentaNYL 100 MCG/2 ML SDV ONE ×2 (12:36→13:34)
[2018-11-06] MEDS ORDERED: Propofol 200 MG/20 ML SDV ONE ×2 (13:34→14:05)
--- NOTE | 2018-11-06 14:33 | PCM.OPNOTE ---
- General Post-Op/Procedure Note Date of Surgery/Procedure: 11/06/18 Operative Procedure(s): EGD and colonoscopy Findings: Multiple polyps in sigmoid colon. Most appeared to be hyperplastic however 2 (# 1 and #7) appeared to be tubular adenomas. A total of 8 polyps taken but not all polyps removed because they were felt to be hyperplastic. Normal EGD. Pre Op Diagnosis: EGD and colonoscopy Post-Op Diagnosis: Multiple sigmoid colon polyps Anesthesia Technique: [facility] [place] [facility] Primary Surgeon: Skylar Pruett Condition: Good
--- NOTE | 2018-11-06 14:38 | PCM.POSTAN ---
POST ANESTHESIA ASSESSMENT - MENTAL STATUS Mental Status: Alert, Oriented - RESPIRATORY Respiratory Status: Respiratory Rate WNL, Airway Patent, O2 Saturation Stable - CARDIOVASCULAR CV Status: Pulse Rate WNL, Blood Pressure Stable - GASTROINTESTINAL GI Status: No Symptoms - PAIN Pain Score: 0 - POST OP HYDRATION Hydration Status: Adequate & Stable
--- NOTE | 2018-11-06 14:43 | PCM48HPAN ---
Post Anesthesia Note - EVALUATION WITHIN 48HRS OF ANESTHETIC Vital Signs in Normal Range: Yes Patient Participated in Evaluation: Yes Respiratory Function Stable: Yes Airway Patent: Yes Cardiovascular Function Stable: Yes Hydration Status Stable: Yes Pain Control Satisfactory: Yes Nausea and Vomiting Control Satisfactory: Yes Mental Status Recovered: Yes Resp Rate: 11
[2018-11-06 14:56] VITALS: BP 138/71
--- NOTE | 2018-11-07 11:55 | OR ---
SURGEON: SARA HASSAN MD DATE OF PROCEDURE: 11/06/2018 PREOPERATIVE DIAGNOSES: 1. Heartburn. 2. Screening colonoscopy. POSTOPERATIVE DIAGNOSIS: Multiple polyps of the sigmoid colon. PROCEDURES PERFORMED: Diagnostic esophagogastroduodenoscopy and screening colonoscopy. ANESTHESIA: MAC. INSTRUMENT USED: Olympus endoscope and colonoscope. EXTENT OF EXAM: To the second portion of duodenum, to the cecum. PREPARATION: Good. LIMITATIONS: None. INDICATION FOR EXAMINATION: The patient is a 58-year-old male who presents with ongoing issues with heartburn and in need of a screening colonoscopy. I explained the procedures, expected perioperative course, and risks including bleeding, infection, or damage to surrounding structures including perforation. The patient verbalized understanding and wishes to proceed. PROCEDURE IN DETAIL: The patient was brought to the endoscopy suite and placed in a beach chair position. A time-out was completed verifying the patient's name, age, date of , allergies, and procedure to be performed. A bite block was placed in the patient's mouth. Monitored anesthesia care was induced and continuous oxygen was provided via nasal cannula throughout the procedure. After adequate sedation was achieved, a well lubricated endoscope was placed in the patient's mouth and advanced under direct visualization to the second portion of duodenum. This appeared normal and a photograph was taken. The scope was then fully withdrawn while examining the color, texture, anatomy, and integrity of mucosa of the upper GI tract. The duodenum was free of pathology. The scope was brought into the stomach and a photograph was taken of the pylorus as well as the GE junction. Both appeared normal. The gastric mucosa appeared to be free of inflammation or ulceration. Biopsies were taken of the gastric antrum, body, and fundus and sent for histologic review and H. pylori testing. The scope was then brought into the distal esophagus. A photograph was taken of the Z-line. This appeared healthy. The remainder of the esophageal mucosa appeared free of pathology. The scope was removed and this portion of procedure was terminated. The patient was placed in the left lateral decubitus position. A digital rectal exam was performed, which was normal. A well lubricated colonoscope was inserted into the rectum and advanced under direct visualization to the level of the cecum. The cecum was identified by both visual and anatomic landmarks. A photograph was taken of cecal cap as well as with the scope retroflexed within the cecum. The scope was then straightened out and fully withdrawn while examining the color, texture, anatomy, and integrity of the mucosa from the cecum to the anal canal. Upon reaching the distal sigmoid colon, the patient was found to have multiple colonic polyps. Two of these were pedunculated and large with an irregular appearance similar to that of the tubular adenoma or tubulovillous adenoma. They were removed using a cold snare. The two polyps in question were labeled as sigmoid colon polyp #1 and sigmoid colon polyp #7. There were multiple polyps throughout and I took several more of these using both a cold biopsy forceps and a cold snare. I took 8 polyps in total. The majority of the polyps appeared hyperplastic, so I did not remove every single one. The scope was then brought into the rectum and retroflexed to allow visualization of the anal canal opening. This appeared normal and a photograph was taken. The scope was then straightened out and fully withdrawn. The cecum to anus time was 20 minutes. The patient tolerated the procedure well and was taken to PACU in stable condition. ENDOSCOPIC DIAGNOSIS: Multiple polyps in the sigmoid colon. RECOMMENDATIONS: Follow up in clinic in 2 weeks. MIRTA MOON /[id number]
== END 2018-11-06 15:15 | disposition home or self-care (01) ==
LOC: MW.SDS 11:18
PROVIDERS: ATTEND Surgery
DX: Z12.11 Encounter for screening for malignant neoplasm of colon (principal); D12.5 Benign neoplasm of sigmoid colon; K63.5 Polyp of colon; K29.50 Unspecified chronic gastritis without bleeding; J44.9 Chronic obstructive pulmonary disease, unspecified; F17.210 Nicotine dependence, cigarettes, uncomplicated; E78.00 Pure hypercholesterolemia, unspecified; C65.1 Malignant neoplasm of right renal pelvis; Z86.73 Personal history of transient ischemic attack (TIA), and cerebral infarction without residual deficits; Z79.899 Other long term (current) drug therapy
CPT/HCPCS: 43239; 45380; 45385; J2704; J3010; J7120; 88305; 88312

== ENCOUNTER 2019-01-29 06:24 | Day surgery (SDC) | payer OTHER ==
[~2019-01-29 06:24] MED LIST changes: +Sodium Chloride 0.9% 10 ML SDV IV PRN; +ceFAZolin 1 GM in Premix Bag 1 BAG IV ONE
--- NOTE | 2019-01-29 07:10 | PCM.PREANE ---
Preanesthetic Assessment - Anesthesia/Transfusion/Family Hx Anesthesia History: Prior Anesthesia Without Reaction Other Type of Anesthesia Reaction Comment: "broken teeth during anesthesia, bit down on tube to hard" Family History of Anesthesia Reaction: No Transfusion History: No Prior Transfusion(s) - Review of Systems General: No Symptoms Pulmonary: No Symptoms Cardiovascular: No Symptoms Gastrointestinal: No Symptoms Neurological: No Symptoms Other: Reports: None - Physical Assessment NPO Status Date: 01/28/19 NPO Status Time: 22:00 O2 Sat by Pulse Oximetry: 95 Respiratory Rate: 16 Vital Signs: Last Vital Signs Temp 96.8 F 01/29/19 06:49 Pulse 58 L 01/29/19 06:49 Resp 16 01/29/19 06:49 BP 117/79 01/29/19 06:49 Pulse Ox 95 01/29/19 06:49 Height: 5 ft 11 in Weight: 90.718 kg ASA Class: 2 Mental Status: Alert & Oriented x3 Airway Class: Mallampati = 2 Dentition: Reports: Missing Tooth/Teeth (Poor dentition) Thyro-Mental Finger Breadths: 3 Mouth Opening Finger Breadths: 3 ROM/Head Extension: Limited/Partial Lungs: Clear to Auscultation, Normal Respiratory Effort Cardiovascular: Regular Rate, Regular Rhythm - Allergies Allergies/Adverse Reactions: Allergies Allergy/AdvReac Type Severity Reaction Status Date / Time No Known Allergies Allergy Verified 01/25/19 09:26 - Anesthesia Plan Free Text/Narrative:: 07/16/18 - EKG - NSR 10/05/16 - Echo - EF 55-60%, Aortic valve sclerosis - Acknowledgements Anesthesia Type Planned: General Anesthesia Pt an Appropriate Candidate for the Planned Anesthesia: Yes Alternatives and Risks of Anesthesia Discussed w Pt/Guardian: Yes Pt/Guardian Understands and Agrees with Anesthesia Plan: Yes PreAnesthesia Questionnaire - Past Health History Medical/Surgical History: Denies Medical/Surgical History HEENT History: Reports: Hard of Hearing, Other (See Below) Other HEENT History: some dental caps 'on pretty good' my teeth have some problems, with broken teeth during first surgery, poor hearing on rt Cardiovascular History: Reports: High Cholesterol Respiratory History: Reports: Other (See Below) Other Respiratory History: Reports 40 year history of smoking, states had pneumonia on Oct 23 2016 Gastrointestinal History: Reports: GERD, Other (See Below) Other Gastrointestinal History: Occasional heartburn treat with prilosec otc Genitourinary History: Reports: Other (See Below) Other Genitourinary History: cancer of rt renal calyx, transitional cell carcinoma of ureter Musculoskeletal History: Reports: Fracture Other Musculoskeletal History: Fracture to Spine ("elvis area was broken off") Neurological History: Reports: Concussion, TIA, Other (See Below) Other Neuro History: "posible TIA x2 in 2016"- states no residual (was Left side affect), states has motion sickness on a boat Psychiatric History: Reports: Depression Other Psychiatric History: depression in the past after cancer diagnosis, none recently Endocrine/Metabolic History: Reports: None Hematologic History: Reports: None Immunologic History: Reports: None Oncologic (Cancer) History: Reports: Bladder, Other (See Below) Other Oncologic History: states cancer in kidney, bladder, and ureter Dermatologic History: Reports: None - Infectious Disease History Infectious Disease History: Reports: None - Past Surgical History Head Surgeries/Procedures: Reports: None Cardiovascular Surgical History: Reports: None Respiratory Surgical History: Reports: None Male Surgical History: Reports: TURBT-Transurethral Resection of Bladder Tumor, Other (See Below) Other Male Surgeries/Procedures: Placement of Right Nephroureteral Stent, 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, cysto and ureterosocpy on rt in october 2016, states multiple cystoscopies and ureteroscopies Endocrine Surgical History: Reports: None Neurological Surgical History: Reports: None - SUBSTANCE USE Smoking Status *Q: Current Every Day Smoker Tobacco Use Within Last Twelve Months: Cigarettes Recreational Drug Use History: Yes - HOME MEDS Home Medications: Home Meds Omeprazole Magnesium [Prilosec Otc] 20 mg PO DAILY PRN 01/25/19 [History] - CURRENT (IN HOUSE) MEDS Current Meds: Current Medications Lactated Ringer's (Ringers, Lactated) 1,000 mls @ 100 mls/hr IV ASDIRECTED [facility] Last Admin: 01/29/19 06:54 Dose: 100 mls/hr Sodium Chloride (Saline Flush) 10 ml FLUSH ASDIRECTED PRN PRN Reason: Keep Vein Open Sodium Chloride (Saline Flush) 2.5 ml FLUSH ASDIRECTED PRN PRN Reason: Keep Vein Open Sodium Chloride (Normal Saline) 10 ml IV ASDIRECTED PRN PRN Reason: IV Use Discontinued Medications Cefazolin Sodium/Dextrose 1 gm (/ Premix) 50 mls @ 100 mls/hr IV ONCALL ONE Stop: 01/29/19 00:30
[2019-01-29] MEDS ORDERED: Propofol 200 MG/20 ML SDV ONE ×3 (07:23→09:17)
[2019-01-29] MEDS ORDERED: Midazolam 1 MG/ML 2 ML SDV ONE (07:23)
[2019-01-29] MEDS ORDERED: Ondansetron 4 MG/2 ML SDV ONE (07:23)
[2019-01-29] MEDS ORDERED: fentaNYL 100 MCG/2 ML SDV ONE ×2 (07:23→08:36)
[2019-01-29] MEDS ORDERED: Sugammadex Sodium 200 MG/2 ML VIAL ONE (07:30)
[2019-01-29] MEDS ORDERED: Iopamidol 408 MG/ML 50 ML SDV ONE ×2 (07:32→08:51)
[2019-01-29] MEDS ORDERED: Rocuronium 100 MG/10 ML Syringe ONE (07:49)
[2019-01-29] MEDS ORDERED: ceFAZolin 1 GM Vial ONE (07:49)
[2019-01-29] MEDS ORDERED: Sodium Chloride 0.9% 20 ML ONE (07:49)
[2019-01-29] MEDS ORDERED: Glycopyrrolate 0.2 MG/ML SDV ONE (08:03)
[2019-01-29] MEDS ORDERED: Ketorolac 30 MG/ML SDV ONE (09:34)
--- NOTE | 2019-01-29 10:46 | PCM48HPAN ---
Post Anesthesia Note - EVALUATION WITHIN 48HRS OF ANESTHETIC Vital Signs in Normal Range: Yes Patient Participated in Evaluation: Yes Respiratory Function Stable: Yes Airway Patent: Yes Cardiovascular Function Stable: Yes Hydration Status Stable: Yes Pain Control Satisfactory: Yes Nausea and Vomiting Control Satisfactory: Yes Mental Status Recovered: Yes Resp Rate: 12
[2019-01-29 10:48] VITALS: BP 128/74
--- NOTE | 2019-01-29 12:29 | OR ---
SURGEON: Saurabh Davis M.D. DATE OF PROCEDURE: 01/29/2019 PREOPERATIVE DIAGNOSES: 1. Recurrent papillary bladder. 2. Right renal pelvis tumors. POSTOPERATIVE DIAGNOSES: 1. Recurrent papillary bladder. 2. Right renal pelvis tumors. OPERATION: Cystoscopy. Resection and fulguration of bladder tumors x5. Total volume of this is probably close to 2.5 cm plus bilateral retrograde pyelogram clean on the left, questionable on the right. Right ureteroscopy and fulguration of right renal pelvis papillary tumors plus double-J stent placement. DESCRIPTION OF PROCEDURE: The patient was given general anesthesia, placed in dorsal lithotomy position, prepped and draped in sterile drapes. Cystourethroscopy was done revealing the presence of 4 papillary tumors ranging from 4 mm to 0.7 cm to involve the neck of the bladder at the 9 o'clock and 2 o'clock positions, and 3 on the posterior wall on the floor of the bladder. These were all treated frequently. Bilateral retrograde pyelograms were done. The one on the left was clean. The one on the right was questionable. A guidewire was advanced in the right ureter all the way up into the renal pelvis. The flexible ureteroscope was advanced over that. The inside of the kidney was visualized in a right lower pole calyx. There were 3 papillary tumors. The tumor surface area that was covered was approximately 1.5 cm. These were fulgurated. With that done, a 6-Maori 26 centimeter double- J stent was placed over a guidewire that was put back in. Position was confirmed with fluoroscopy, the bladder was emptied, and the patient was moved to recovery room in good condition. PLAN: He will have mitomycin therapy in 2 weeks and again a month later, and he will have another cystoscopy and ureteroscopy in about 4 months. BALDO / RED /[id number]
--- NOTE | 2019-01-30 11:53 | CR ---
EXAMINATION: Cystoscopy HISTORY: Cystoscopy COMPARISON: CT dated 01/02/2019 TECHNIQUE: 14 fluoroscopic films demonstrated. FINDINGS/IMPRESSION: Retrograde filling of the renal collecting systems bilaterally demonstrates narrowing of the proximal right ureter without a definite filling defect. The left renal collecting system appears grossly normal. Subsequent right-sided stent placement.
== END 2019-01-29 11:05 | disposition home or self-care (01) ==
LOC: MW.SDS 06:24
PROVIDERS: ATTEND Urology
DX: C67.5 Malignant neoplasm of bladder neck (principal); C67.4 Malignant neoplasm of posterior wall of bladder; D41.11 Neoplasm of uncertain behavior of right renal pelvis; F17.210 Nicotine dependence, cigarettes, uncomplicated; K21.9 Gastro-esophageal reflux disease without esophagitis; Z79.899 Other long term (current) drug therapy
CPT/HCPCS: 52234; 52332; 52354; 76000; C1769; J0690; J1885; J2001; J2250; J2405; J2704; J3010; J3490; J7120; Q9966; 88307

== ENCOUNTER 2019-05-21 06:22 | Day surgery (SDC) | payer OTHER ==
[~2019-05-21 06:22] MED LIST changes: +ceFAZolin 1 GM Vial IV ONE; -ceFAZolin 1 GM in Premix Bag 1 BAG IV ONE
[2019-05-21] MEDS ORDERED: Ondansetron 4 MG/2 ML SDV ONE (07:00)
[2019-05-21] MEDS ORDERED: Ketorolac 30 MG/ML SDV ONE (07:00)
[2019-05-21] MEDS ORDERED: Lidocaine 2% 5 ML SDV ONE (07:00)
[2019-05-21] MEDS ORDERED: Glycopyrrolate 0.2 MG/ML SDV ONE ×2 (07:00→07:58)
[2019-05-21] MEDS ORDERED: Propofol 200 MG/20 ML SDV ONE ×2 (07:03→09:16)
[2019-05-21] MEDS ORDERED: fentaNYL 100 MCG/2 ML SDV ONE (07:04)
[2019-05-21] MEDS ORDERED: Midazolam 1 MG/ML 2 ML SDV ONE (07:04)
--- NOTE | 2019-05-21 07:10 | PCM.PREANE ---
Preanesthetic Assessment - Anesthesia/Transfusion/Family Hx Anesthesia History: Prior Anesthesia Without Reaction Other Type of Anesthesia Reaction Comment: "broken teeth during anesthesia, bit down on tube to hard" Family History of Anesthesia Reaction: No Transfusion History: No Prior Transfusion(s) Intubation History: Unknown - Review of Systems General: No Symptoms Pulmonary: No Symptoms Cardiovascular: No Symptoms Gastrointestinal: No Symptoms Neurological: No Symptoms Other: Reports: None - Physical Assessment O2 Sat by Pulse Oximetry: 96 Respiratory Rate: 16 Vital Signs: Last Vital Signs Temp 36 C 05/21/19 06:46 Pulse 61 05/21/19 06:46 Resp 16 05/21/19 06:46 BP 142/81 H 05/21/19 06:46 Pulse Ox 96 05/21/19 06:46 Height: 5 ft 11 in Weight: 90.718 kg ASA Class: 2 Mental Status: Alert & Oriented x3 Airway Class: Mallampati = 2 Dentition: Reports: Normal Dentition, Missing Tooth/Teeth (upper right incisors (broken during anesthesia)) Thyro-Mental Finger Breadths: 3 Mouth Opening Finger Breadths: 3 ROM/Head Extension: Limited/Partial Lungs: Clear to Auscultation, Normal Respiratory Effort Cardiovascular: Regular Rate, Regular Rhythm - Allergies Allergies/Adverse Reactions: Allergies Allergy/AdvReac Type Severity Reaction Status Date / Time No Known Allergies Allergy Verified 05/16/19 13:07 - Blood Blood Available: No - Anesthesia Plan Pre-Op Medication Ordered: None - Acknowledgements Anesthesia Type Planned: General Anesthesia Pt an Appropriate Candidate for the Planned Anesthesia: Yes Alternatives and Risks of Anesthesia Discussed w Pt/Guardian: Yes Pt/Guardian Understands and Agrees with Anesthesia Plan: Yes PreAnesthesia Questionnaire - Past Health History Medical/Surgical History: Denies Medical/Surgical History HEENT History: Reports: Hard of Hearing, Other (See Below) Other HEENT History: some dental caps, with broken teeth during first surgery, poor hearing on rt Cardiovascular History: Reports: High Cholesterol Respiratory History: Reports: Other (See Below) Other Respiratory History: Reports 40 year history of smoking, states had pneumonia on Oct 23 2016 Gastrointestinal History: Reports: GERD, Other (See Below) Other Gastrointestinal History: Occasional heartburn treat with prilosec otc Genitourinary History: Reports: Other (See Below) Other Genitourinary History: cancer of rt renal calyx, transitional cell carcinoma of ureter Musculoskeletal History: Reports: Fracture Other Musculoskeletal History: Fracture to Spine ("elvis area was broken off") Neurological History: Reports: Concussion, TIA, Other (See Below) Other Neuro History: "posible TIA x2 in 2016"- states no residual (was Left side affect), states has motion sickness on a boat Psychiatric History: Reports: Depression Other Psychiatric History: depression in the past after cancer diagnosis, none recently Endocrine/Metabolic History: Reports: None Hematologic History: Reports: None Immunologic History: Reports: None Oncologic (Cancer) History: Reports: Bladder, Other (See Below) Other Oncologic History: states cancer in kidney, bladder, and ureter Dermatologic History: Reports: None - Infectious Disease History Infectious Disease History: Reports: None - Past Surgical History Head Surgeries/Procedures: Reports: None Cardiovascular Surgical History: Reports: None Respiratory Surgical History: Reports: None Male Surgical History: Reports: TURBT-Transurethral Resection of Bladder Tumor, Other (See Below) Other Male Surgeries/Procedures: Placement of Right Nephroureteral Stent, 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, cysto and ureterosocpy on rt in october 2016, states multiple cystoscopies and ureteroscopies, stent placement Endocrine Surgical History: Reports: None Neurological Surgical History: Reports: None Musculoskeletal Surgical History: Reports: None Oncologic Surgical History: Reports: None - SUBSTANCE USE Smoking Status *Q: Current Every Day Smoker (on chantix trying to quit smoking ( urge is gone)) Tobacco Use Within Last Twelve Months: Cigarettes Recreational Drug Use History: No - HOME MEDS Home Medications: Home Meds Omeprazole Magnesium [Prilosec Otc] 20 mg PO DAILY PRN 01/25/19 [History] Aspirin [Ecotrin EC] 81 mg PO DAILY 05/16/19 [History] Calcium Carbonate [Tums] 1 tab.chew CHEW ASDIRECTED PRN 05/16/19 [History] Varenicline Tartrate [Chantix] 1 tab PO BID 05/16/19 [History] - CURRENT (IN HOUSE) MEDS Current Meds: Current Medications Lactated Ringer's (Ringers, Lactated) 1,000 mls @ 100 mls/hr IV ASDIRECTED KIKO Last Admin: 05/21/19 06:49 Dose: 100 mls/hr Sodium Chloride (Saline Flush) 10 ml FLUSH ASDIRECTED PRN PRN Reason: Keep Vein Open Sodium Chloride (Saline Flush) 2.5 ml FLUSH ASDIRECTED PRN PRN Reason: Keep Vein Open Sodium Chloride (Normal Saline) 10 ml IV ASDIRECTED PRN PRN Reason: IV Use Discontinued Medications Cefazolin Sodium (Ancef) 1 gm IV ONCALL ONE Stop: 05/21/19 00:02 Fentanyl (Sublimaze) Confirm Administered Dose 100 mcg .ROUTE .STK-MED ONE Stop: 05/21/19 07:05 Glycopyrrolate (Robinul) Confirm Administered Dose 0.2 mg .ROUTE .STK-MED ONE Stop: 05/21/19 07:01 Ketorolac Tromethamine (Toradol) Confirm Administered Dose 30 mg .ROUTE .STK- MED ONE Stop: 05/21/19 07:01 Lidocaine (Xylocaine-Mpf 2%) Confirm Administered Dose 5 ml .ROUTE .STK-MED ONE Stop: 05/21/19 07:01 Midazolam HCl (Versed 1 Mg/Ml) Confirm Administered Dose 2 mg .ROUTE .STK-MED ONE Stop: 05/21/19 07:05 Ondansetron HCl (Zofran) Confirm Administered Dose 4 mg .ROUTE .STK-MED ONE Stop: 05/21/19 07:01 Propofol (Diprivan 20 Ml) Confirm Administered Dose 200 mg .ROUTE .STK-MED ONE Stop: 05/21/19 07:04
[2019-05-21] MEDS ORDERED: Sodium Chloride 0.9% 20 ML ONE (07:17)
[2019-05-21] MEDS ORDERED: ceFAZolin 1 GM Vial ONE (07:17)
[2019-05-21] MEDS ORDERED: Iopamidol 200-M 10 ML vial ITHECAL ONE ×2 (07:43→08:48)
[2019-05-21] MEDS ORDERED: Neostigmine Methylsulfate 1 MG/ML 5 ML Syringe ONE (07:58)
[2019-05-21] MEDS ORDERED: Rocuronium 100 MG/10 ML Syringe ONE (07:58)
[2019-05-21] MEDS ORDERED: Phenylephrine/Normal Saline 100 MCG/ML 10 ML Syringe ONE (08:29)
[2019-05-21] MEDS ORDERED: Omeprazole 20 MG Cap.CR PO PRN (09:38)
[2019-05-21] MEDS ORDERED: Calcium Carbonate 500 MG Tab.Chew PO PRN (09:38)
--- NOTE | 2019-05-21 11:06 | OR ---
SURGEON: Saurabh Davis M.D. 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 OPERATIONS: Cystoscopy, remove double-J stent, renoscopy, fulguration of 3 small papillary tumors and insertion of 20 mg of mitomycin-C in 20 mL of normal saline. DESCRIPTION OF PROCEDURE: The patient was given general anesthesia, he was in dorsal lithotomy position, prepped and draped in sterile drapes. Cystourethroscopy was done. The inside of the bladder showed no new tumors. The existing double-J stent was pulled out partially and a guidewire was advanced through the double-J stent all the way up into the renal pelvis over which the flexible ureteroscope was advanced to inspect the inside of the renal pelvis, which showed the presence of 3 papillary tumors, the largest was about 4 mm. These were fulgurated using a Bugbee electrode through the flexible ureteroscope that was a 3-Greenlandic. With that done, the ureter was then inspected and showed some papillary changes in the mid ureter. The renal pelvis was then cannulated with a 5-Greenlandic whistle-tip ureteral catheter that was tied to the Ramos catheter. The bladder was emptied, and the patient was moved to recovery room in good condition. BALDO / RED /[id number]
[2019-05-21 11:11] VITALS: BP 120/79; PULSE 55
--- NOTE | 2019-05-21 15:23 | CR ---
EXAMINATION: Cystoscopy HISTORY: Cystoscopy COMPARISON: 01/29/2019 TECHNIQUE: 3 fluoroscopic images provided FINDINGS/IMPRESSION: Operative control films demonstrates reduction of the right ureter.
[2019-05-21] MEDS ORDERED: CHANTIX 1 MG PO SCH (21:00)
[2019-05-22] MEDS ORDERED: MITOMYCIN IV SCH (09:00)
[2019-05-22] MEDS ORDERED: Aspirin 81 MG Tab.EC PO SCH (09:00)
[2019-05-22] MEDS ORDERED: SODIUM CHLORIDE 0.9% IV SCH (09:00)
== END 2019-05-21 11:26 | disposition home or self-care (01) ==
LOC: MW.SDS 06:22
PROVIDERS: ATTEND Urology
DX: D41.11 Neoplasm of uncertain behavior of right renal pelvis (principal); E78.00 Pure hypercholesterolemia, unspecified; K21.9 Gastro-esophageal reflux disease without esophagitis; F17.210 Nicotine dependence, cigarettes, uncomplicated; Z85.528 Personal history of other malignant neoplasm of kidney; Z79.899 Other long term (current) drug therapy; Z79.82 Long term (current) use of aspirin
CPT/HCPCS: 52354; 76000; J0690; J1885; J2001; J2250; J2370; J2405; J2704; J3010; J3490; J7120; Q9966; 00912

== ENCOUNTER 2019-09-24 08:15 | Day surgery (SDC) | payer OTHER ==
--- NOTE | 2019-09-24 10:10 | PCM.PREANE ---
Preanesthetic Assessment - Anesthesia/Transfusion/Family Hx Anesthesia History: Prior Anesthesia Reaction Other Type of Anesthesia Reaction Comment: "broken teeth during anesthesia, bit down on tube to hard" Family History of Anesthesia Reaction: No Transfusion History: No Prior Transfusion(s) Intubation History: Unknown - Review of Systems General: No Symptoms Pulmonary: No Symptoms Cardiovascular: No Symptoms Gastrointestinal: No Symptoms Neurological: No Symptoms Other: Reports: None - Physical Assessment Vital Signs: Last Vital Signs Temp 97.7 F 09/24/19 08:36 Pulse 67 09/24/19 08:36 Resp 14 09/24/19 08:36 BP 126/77 09/24/19 08:36 Pulse Ox 94 L 09/24/19 08:36 Height: 5 ft 11 in Weight: 90.718 kg ASA Class: 2 Mental Status: Alert & Oriented x3 Airway Class: Mallampati = 2 Dentition: Reports: Stamps(s), Missing Tooth/Teeth ROM/Head Extension: Full Lungs: Clear to Auscultation, Normal Respiratory Effort Cardiovascular: Regular Rate, Regular Rhythm - Allergies Allergies/Adverse Reactions: Allergies Allergy/AdvReac Type Severity Reaction Status Date / Time codeine Allergy Nausea and Verified 09/24/19 09:07 Vomiting - Blood Blood Available: No - Anesthesia Plan Pre-Op Medication Ordered: None - Acknowledgements Anesthesia Type Planned: General Anesthesia Pt an Appropriate Candidate for the Planned Anesthesia: Yes Alternatives and Risks of Anesthesia Discussed w Pt/Guardian: Yes Pt/Guardian Understands and Agrees with Anesthesia Plan: Yes Additional Comments: PLAN: [email or web address]/lma PreAnesthesia Questionnaire - Past Health History Medical/Surgical History: Denies Medical/Surgical History HEENT History: Reports: Other (See Below) Other HEENT History: uses reading glasses Cardiovascular History: Reports: Heart Murmur Other Cardiovascular History: was told he had a murmur as a child- not detectable now Respiratory History: Reports: Other (See Below) Other Respiratory History: Reports 40 year history of smoking, states had pneumonia on Oct 23 2016 Gastrointestinal History: Reports: GERD Other Gastrointestinal History: Occasional heartburn treat with prilosec otc Genitourinary History: Reports: Renal Disease Other Genitourinary History: bladder, ureter and kidney cancer Musculoskeletal History: Reports: Fracture Other Musculoskeletal History: hx of fx fingers Neurological History: Reports: CVA Other Neuro History: was thought to have a stroke 2 years ago because of left sided numbness- no treatment and no residual symptoms Psychiatric History: Reports: Depression Other Psychiatric History: depression in the past after cancer diagnosis, none recently Endocrine/Metabolic History: Reports: None Hematologic History: Reports: None Immunologic History: Reports: None Oncologic (Cancer) History: Reports: Bladder, Renal Other Oncologic History: states cancer in kidney, bladder, and ureter Dermatologic History: Reports: None - Infectious Disease History Infectious Disease History: Reports: None - Past Surgical History Head Surgeries/Procedures: Reports: None Cardiovascular Surgical History: Reports: None Respiratory Surgical History: Reports: None Male Surgical History: Reports: Other (See Below) Other Male Surgeries/Procedures: Cystourethroscopy Endocrine Surgical History: Reports: None Neurological Surgical History: Reports: None Musculoskeletal Surgical History: Reports: None Oncologic Surgical History: Reports: None - SUBSTANCE USE Smoking Status *Q: Current Every Day Smoker Tobacco Use Within Last Twelve Months: Cigarettes Recreational Drug Use History: No - HOME MEDS Home Medications: Home Meds Omeprazole Magnesium [Prilosec Otc] 20 mg PO DAILY PRN 01/25/19 [History]
[2019-09-24] MEDS ORDERED: Iopamidol 408 MG/ML 50 ML SDV ONE ×2 (11:31→13:23)
[2019-09-24] MEDS ORDERED: Ondansetron 4 MG/2 ML SDV ONE ×2 (11:36→11:37)
[2019-09-24] MEDS ORDERED: Propofol 200 MG/20 ML SDV ONE ×2 (11:38→11:41)
[2019-09-24] MEDS ORDERED: Midazolam 1 MG/ML 2 ML SDV ONE (11:38)
[2019-09-24] MEDS ORDERED: fentaNYL 100 MCG/2 ML SDV ONE ×2 (11:38→12:47)
[2019-09-24] MEDS ORDERED: Glycopyrrolate 0.2 MG/ML SDV ONE (11:39)
[2019-09-24] MEDS ORDERED: Ketorolac 30 MG/ML SDV ONE (11:43)
[2019-09-24] MEDS ORDERED: Sodium Chloride 0.9% 20 ML ONE (11:56)
[2019-09-24] MEDS ORDERED: ceFAZolin 1 GM Vial ONE (11:56)
[2019-09-24] MEDS ORDERED: Acetaminophen 1,000 MG in Premix Bag 1 BAG IV PRN (12:15)
[2019-09-24] MEDS ORDERED: fentaNYL 100 MCG/2 ML SDV IVPUSH ONE (12:17)
[2019-09-24] MEDS ORDERED: Dexamethasone 4 MG/ML 5 ML MDV ONE (13:09)
[2019-09-24] MEDS ORDERED: Morphine 10 MG/ML Syringe ONE (13:26)
[2019-09-24] MEDS ORDERED: Sugammadex Sodium 200 MG/2 ML VIAL ONE (13:36)
[2019-09-24] MEDS ORDERED: Non-Formulary Medication 1 Each (Omeprazole Magnesium [Prilosec Otc] 20 MG) PO PRN (13:55)
[2019-09-24 15:41] VITALS: BP 124/70; PULSE 66
--- NOTE | 2019-09-24 16:14 | PCM.POSTAN ---
POST ANESTHESIA ASSESSMENT - MENTAL STATUS Mental Status: Alert, Oriented - VITAL SIGNS Vital Signs: Last Vital Signs Temp 97.5 F 09/24/19 14:20 Pulse 66 09/24/19 15:05 Resp 14 09/24/19 15:05 BP 124/70 09/24/19 15:05 Pulse Ox 94 L 09/24/19 15:05 - RESPIRATORY Respiratory Status: Respiratory Rate WNL, Airway Patent, O2 Saturation Stable - CARDIOVASCULAR CV Status: Pulse Rate WNL, Blood Pressure Stable - GASTROINTESTINAL GI Status: No Symptoms - POST OP HYDRATION Hydration Status: Adequate & Stable
--- NOTE | 2019-09-24 16:14 | PCM48HPAN ---
Post Anesthesia Note - EVALUATION WITHIN 48HRS OF ANESTHETIC Vital Signs in Normal Range: Yes Patient Participated in Evaluation: Yes Respiratory Function Stable: Yes Airway Patent: Yes Cardiovascular Function Stable: Yes Hydration Status Stable: Yes Pain Control Satisfactory: Yes Nausea and Vomiting Control Satisfactory: Yes Mental Status Recovered: Yes Vital Signs: Last Vital Signs Temp 97.5 F 09/24/19 14:20 Pulse 66 09/24/19 15:05 Resp 14 09/24/19 15:05 BP 124/70 09/24/19 15:05 Pulse Ox 94 L 09/24/19 15:05
--- NOTE | 2019-09-25 08:52 | OR ---
SURGEON: Saurabh Davis M.D. 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 OPERATION PERFORMED: Renoscopy, fulguration of ureteral tumor and renal pelvis tumor. The ureteral tumor was rather extensive, about 1.5 to 2 cm in distance and all clearly papillary and involved two thirds of the circumference of the ureteral mucosa. The flexible ureteroscope was initially introduced in the right renal pelvis over a guidewire. The guidewire was removed, and the Bugbee electrode was used to burn the renal pelvis flat tumor. The flexible ureteroscope was pulled back and the ureteral tumor was visualized, work was started on that. However, to achieve better visualization, I switched to the rigid ureteroscope and had easy access to the right upper ureter right at the UPJ. The rest of the ureteral tumor was fulgurated. With that done, the specimen was submitted for cytology and a 6-Samoan whistle-tip catheter was introduced into the right renal pelvis. A 16-Samoan Ramos catheter was left in the bladder, and the ureteral catheter was tied to the Ramos catheter. The ureteral catheter was occluded with an ACMI seal. The patient will receive mitomycin therapy into the renal pelvis once a week for 6 weeks. He will come to the office where the Ramos catheter and the ureteral catheter will be removed, and 6 weeks later, he will have another ureteroscopy. BALDO / RED /[id number]
== END 2019-09-24 15:39 | disposition home or self-care (01) ==
LOC: MW.SDS 08:15
PROVIDERS: ATTEND Urology
DX: C65.1 Malignant neoplasm of right renal pelvis (principal); K21.9 Gastro-esophageal reflux disease without esophagitis; C66.9 Malignant neoplasm of unspecified ureter; F17.210 Nicotine dependence, cigarettes, uncomplicated; Z88.5 Allergy status to narcotic agent; Z79.82 Long term (current) use of aspirin
CPT/HCPCS: 52354; C1769; J0690; J1100; J1885; J2250; J2270; J2405; J2704; J3010; J3490; Q9966; 00912

== ENCOUNTER 2019-12-03 07:31 | Day surgery (SDC) | payer OTHER ==
[~2019-12-03 07:31] MED LIST changes: +Lidocaine 2% 5 ML SDV ONE; +Propofol 200 MG/20 ML SDV ONE; -ceFAZolin 1 GM Vial IV ONE; +fentaNYL 100 MCG/2 ML SDV ONE
--- NOTE | 2019-12-03 08:37 | PCM.PREANE ---
Preanesthetic Assessment - Anesthesia/Transfusion/Family Hx Anesthesia History: Prior Anesthesia Without Reaction Other Type of Anesthesia Reaction Comment: "broken teeth during anesthesia, bit down on tube to hard" Family History of Anesthesia Reaction: No Transfusion History: No Prior Transfusion(s) Intubation History: Unknown - Review of Systems General: No Symptoms Pulmonary: No Symptoms Cardiovascular: No Symptoms Gastrointestinal: No Symptoms, Other (colonoscopy last year with multiple hyperplastic polyps) Neurological: No Symptoms Other: Reports: None - Physical Assessment NPO Status Date: 12/03/19 NPO Status Time: 03:00 Vital Signs: Last Vital Signs Temp 36.6 C 12/03/19 08:00 Pulse 74 12/03/19 08:00 Resp 16 12/03/19 08:00 BP 121/79 12/03/19 08:00 Pulse Ox 95 12/03/19 08:00 Height: 5 ft 11 in Weight: 92.533 kg ASA Class: 2 Mental Status: Alert & Oriented x3 Airway Class: Mallampati = 2 Dentition: Reports: Normal Dentition, Porcupine(s) (x1 upper right and left (sides)) , Missing Tooth/Teeth (multiple) Thyro-Mental Finger Breadths: 3 Mouth Opening Finger Breadths: 3 ROM/Head Extension: Full Lungs: Clear to Auscultation, Normal Respiratory Effort Cardiovascular: Regular Rate, Regular Rhythm - Allergies Allergies/Adverse Reactions: Allergies Allergy/AdvReac Type Severity Reaction Status Date / Time codeine Allergy Nausea Verified 11/27/19 08:27 - Blood Blood Available: No - Anesthesia Plan Pre-Op Medication Ordered: None - Acknowledgements Anesthesia Type Planned: MAC Pt an Appropriate Candidate for the Planned Anesthesia: Yes Alternatives and Risks of Anesthesia Discussed w Pt/Guardian: Yes Pt/Guardian Understands and Agrees with Anesthesia Plan: Yes PreAnesthesia Questionnaire - Past Health History Medical/Surgical History: Denies Medical/Surgical History HEENT History: Reports: Other (See Below) Other HEENT History: uses reading glasses Cardiovascular History: Reports: Heart Murmur Other Cardiovascular History: was told he had a murmur as a child- not detectable now Respiratory History: Reports: Other (See Below) Other Respiratory History: Reports 40 year history of smoking, states had pneumonia on Oct 23 2016 Gastrointestinal History: Reports: Colon Polyp, GERD Other Gastrointestinal History: Occasional heartburn treat with prilosec otc Genitourinary History: Reports: Renal Disease Other Genitourinary History: renal calyx cancer Musculoskeletal History: Reports: Fracture Other Musculoskeletal History: hx of fx fingers Neurological History: Reports: TIA Other Neuro History: was thought to have a TIA 2 years ago because of left sided numbness- no treatment and no residual symptoms Psychiatric History: Reports: Depression Other Psychiatric History: depression in the past after cancer diagnosis, none recently Endocrine/Metabolic History: Reports: None Hematologic History: Reports: None Immunologic History: Reports: None Oncologic (Cancer) History: Reports: Renal Other Oncologic History: 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 Dermatologic History: Reports: None - Infectious Disease History Infectious Disease History: Reports: None - Past Surgical History Head Surgeries/Procedures: Reports: None HEENT Surgical History: Reports: None Cardiovascular Surgical History: Reports: None Respiratory Surgical History: Reports: None GI Surgical History: Reports: Colonoscopy (a year ago) Male Surgical History: Reports: TURBT-Transurethral Resection of Bladder Tumor, Other (See Below) Other Male Surgeries/Procedures: multiple Cystourethroscopies for debulking of cancer Endocrine Surgical History: Reports: None Neurological Surgical History: Reports: None Musculoskeletal Surgical History: Reports: None Oncologic Surgical History: Reports: Other (See Below) Other Oncologic Surgeries/Procedures: chemo this last Sep and Oct, Dermatological Surgical History: Reports: None - SUBSTANCE USE Smoking Status *Q: Current Every Day Smoker (down to few cigarettes per day) Tobacco Use Within Last Twelve Months: Cigarettes Recreational Drug Use History: Yes - HOME MEDS Home Medications: Home Meds Omeprazole Magnesium [Prilosec Otc] 20 mg PO DAILY PRN 01/25/19 [History] Varenicline Tartrate [Chantix] 1 tab PO BID 11/27/19 [History] - CURRENT (IN HOUSE) MEDS Current Meds: Current Medications Lactated Ringer's (Ringers, Lactated) 1,000 mls @ 125 mls/hr IV ASDIRECTED KIKO Last Admin: 12/03/19 08:00 Dose: 125 mls/hr Sodium Chloride (Saline Flush) 10 ml FLUSH ASDIRECTED PRN PRN Reason: Keep Vein Open Sodium Chloride (Saline Flush) 2.5 ml FLUSH ASDIRECTED PRN PRN Reason: Keep Vein Open Sodium Chloride (Saline Flush) 10 ml FLUSH ASDIRECTED PRN PRN Reason: Keep Vein Open Sodium Chloride (Saline Flush) 2.5 ml FLUSH ASDIRECTED PRN PRN Reason: Keep Vein Open Sodium Chloride (Normal Saline) 10 ml IV ASDIRECTED PRN PRN Reason: IV Use Discontinued Medications Fentanyl (Sublimaze) Confirm Administered Dose 100 mcg .ROUTE .STK-MED ONE Stop: 12/03/19 07:13 Lidocaine (Xylocaine-Mpf 2%) Confirm Administered Dose 5 ml .ROUTE .STK-MED ONE Stop: 12/03/19 07:13 Propofol (Diprivan 20 Ml) Confirm Administered Dose 400 mg .ROUTE .STK-MED ONE Stop: 12/03/19 07:13
--- NOTE | 2019-12-03 09:45 | PCM.OPNOTE ---
- General Post-Op/Procedure Note Date of Surgery/Procedure: 12/03/19 Operative Procedure(s): Diagnostic colonoscopy Findings: Multiple hyperplastic polyps in the distal sigmoid colon and rectum. Sigmoid colon polyp #1 and 2 appeared hyperplastic. Sigmoid colon polyp #3 appeared to be a tubular adenoma. Pre Op Diagnosis: History of colon polyps Post-Op Diagnosis: Sigmoid colon polyps x 3 Anesthesia Technique: MAC Primary Surgeon: Skylar Pruett Condition: Good
[2019-12-03 09:59] VITALS: BP 102/66; PULSE 64
--- NOTE | 2019-12-03 10:20 | PCM48HPAN ---
Post Anesthesia Note - EVALUATION WITHIN 48HRS OF ANESTHETIC Vital Signs in Normal Range: Yes Patient Participated in Evaluation: Yes Respiratory Function Stable: Yes Airway Patent: Yes Cardiovascular Function Stable: Yes Hydration Status Stable: Yes Pain Control Satisfactory: Yes Nausea and Vomiting Control Satisfactory: Yes Mental Status Recovered: Yes Vital Signs: Last Vital Signs Temp 36.0 C L 12/03/19 10:04 Pulse 64 12/03/19 10:04 Resp 16 12/03/19 10:04 BP 102/66 12/03/19 10:04 Pulse Ox 94 L 12/03/19 10:04 - COMMENTS/OBSERVATIONS Free Text/Narrative:: no anesthesia problems
--- NOTE | 2019-12-03 10:21 | PCM.POSTAN ---
POST ANESTHESIA ASSESSMENT - MENTAL STATUS Mental Status: Alert, Oriented - VITAL SIGNS Vital Signs: Last Vital Signs Temp 36.0 C L 12/03/19 10:04 Pulse 64 12/03/19 10:04 Resp 16 12/03/19 10:04 BP 102/66 12/03/19 10:04 Pulse Ox 94 L 12/03/19 10:04 - RESPIRATORY Respiratory Status: Respiratory Rate WNL, Airway Patent, O2 Saturation Stable - CARDIOVASCULAR CV Status: Pulse Rate WNL, Blood Pressure Stable - GASTROINTESTINAL GI Status: No Symptoms - PAIN Pain Score: 0 - POST OP HYDRATION Hydration Status: Adequate & Stable - OBSERVATIONS Free Text/Narrative:: No anesthesia problems
--- NOTE | 2019-12-03 12:18 | OR ---
SURGEON: SKYLAR PRUETT MD DATE OF PROCEDURE: 12/03/2019 PREOPERATIVE DIAGNOSIS: History of colon polyps. POSTOPERATIVE DIAGNOSES: 1. Hyperplastic colon polyps. 2. Sigmoid colon polyp x3. PROCEDURE PERFORMED: Diagnostic colonoscopy. PRIMARY SURGEON: Skylar Pruett MD. ANESTHESIA: MAC. INSTRUMENT USED: Olympus colonoscope. EXTENT OF EXAM: To the cecum. PREPARATION: Good. LIMITATIONS: None. INDICATIONS FOR EXAMINATION: The patient is a 59-year-old male who presents for one-year followup colonoscopy. I performed a colonoscopy on him last year and found multiple polyps within the sigmoid colon. These were biopsied and all but one were hyperplastic. To ensure that I have removed all of the concerning polyps, I explained the need for a repeat colonoscopy. I explained the procedure; expected perioperative course; and risks including bleeding, infection, or damage to surrounding structures including perforation. The patient verbalized understanding and wishes to proceed. PROCEDURE IN DETAIL: The patient was brought into the endoscopy suite and placed in the left lateral decubitus position. A time-out was completed verifying the patient's name, age, date of , allergies, and procedure to be performed. Monitored anesthesia care was induced and continuous oxygen was provided via nasal cannula throughout the procedure. After adequate sedation was achieved, a digital rectal exam was performed. This exam was within normal limits. A well-lubricated colonoscope was inserted in the rectum and advanced under direct visualization to the level of the cecum. Cecum was identified by both visual and anatomic landmarks. A photograph was taken of the cecal cap. The scope was then fully withdrawn while examining the color, texture, anatomy, and integrity of the mucosa from the cecum to the anal canal. The patient was found to have multiple hyperplastic polyps again within the distal sigmoid colon from 20 cm down. Using narrow-band imaging, I closely inspected all of these. They all appeared similar in nature. I took two larger hyperplastic appearing polyps using cold biopsy forceps. I labeled them as sigmoid colon polyp #1 and sigmoid colon polyp #2. One of the polyps in the distal sigmoid colon did appear more irregular and raised. This polyp was removed in piecemeal fashion using cold biopsy forceps and labeled as sigmoid colon polyp #3. The scope was then brought into the rectum and retroflexed to allow visualization of the anal canal opening. The patient appeared to have mildly enlarged hemorrhoidal tissue. A photograph of this was taken. The scope was then straightened out and fully withdrawn. The cecum to anus time was 30 minutes. The patient tolerated the procedure well and was transferred to the PACU in stable condition. ENDOSCOPIC DIAGNOSES: 1. Hyperplastic colon polyps. 2. Sigmoid colon polyp x3. RECOMMENDATIONS: Follow up in clinic in 2 weeks. MIRTA MOON /[id number]
== END 2019-12-03 10:19 | disposition home or self-care (01) ==
LOC: MW.SDS 07:31
PROVIDERS: ATTEND Surgery
DX: Z09 Encounter for follow-up examination after completed treatment for conditions other than malignant neoplasm (principal); D12.5 Benign neoplasm of sigmoid colon; K63.5 Polyp of colon; K64.9 Unspecified hemorrhoids; K21.9 Gastro-esophageal reflux disease without esophagitis; F17.210 Nicotine dependence, cigarettes, uncomplicated; Z86.010 Personal history of colon polyps; Z88.5 Allergy status to narcotic agent
CPT/HCPCS: 45380; J2001; J2704; J3010; J7120; 00811; 88305

== ENCOUNTER 2020-03-05 08:01 | Day surgery (SDC) | payer OTHER ==
[~2020-03-05 08:01] MED LIST changes: +Dexamethasone 4 MG/ML 5 ML MDV ONE; +Midazolam 1 MG/ML 2 ML SDV ONE; +Ondansetron 4 MG/2 ML SDV ONE; +ceFAZolin 1 GM Vial IV ONE; +ceFAZolin 1 GM in Premix Bag 1 BAG IV ONE; +ceFAZolin 2 GM in Premix Bag 1 BAG IV ONE
--- NOTE | 2020-03-05 08:34 | PCM.PREANE ---
Preanesthetic Assessment - Anesthesia/Transfusion/Family Hx Anesthesia History: Prior Anesthesia Without Reaction Other Type of Anesthesia Reaction Comment: "broken teeth during anesthesia, bit down on tube to hard" Family History of Anesthesia Reaction: No Transfusion History: No Prior Transfusion(s) Intubation History: Unknown - Review of Systems General: No Symptoms Pulmonary: No Symptoms Cardiovascular: No Symptoms Gastrointestinal: No Symptoms Neurological: No Symptoms Other: Reports: None - Physical Assessment Height: 5 ft 11 in Weight: 93.44 kg ASA Class: 2 Mental Status: Alert & Oriented x3 Airway Class: Mallampati = 2 Dentition: Reports: Normal Dentition, Partial (1 tooth upper right- removed), [place](s) (x1 upper left and right) Thyro-Mental Finger Breadths: 3 Mouth Opening Finger Breadths: 3 ROM/Head Extension: Full Lungs: Clear to Auscultation, Normal Respiratory Effort Cardiovascular: Regular Rate, Regular Rhythm - Allergies Allergies/Adverse Reactions: Allergies Allergy/AdvReac Type Severity Reaction Status Date / Time codeine Allergy Nausea Verified 03/02/20 09:31 - Blood Blood Available: No - Anesthesia Plan Pre-Op Medication Ordered: None - Acknowledgements Anesthesia Type Planned: General Anesthesia Pt an Appropriate Candidate for the Planned Anesthesia: Yes Alternatives and Risks of Anesthesia Discussed w Pt/Guardian: Yes Pt/Guardian Understands and Agrees with Anesthesia Plan: Yes PreAnesthesia Questionnaire - Past Health History Medical/Surgical History: Denies Medical/Surgical History HEENT History: Reports: Other (See Below) Other HEENT History: wears glasses, top and bottom partial Cardiovascular History: Reports: Heart Murmur, High Cholesterol Other Cardiovascular History: was told he had a murmur as a child- not detectable now Respiratory History: Reports: Other (See Below) Other Respiratory History: Reports 40 year history of smoking, states had pneumonia on Oct 23 2016 Gastrointestinal History: Reports: Colon Polyp, GERD Other Gastrointestinal History: Occasional heartburn treat with prilosec otc Genitourinary History: Reports: Renal Disease Other Genitourinary History: renal calyx cancer Musculoskeletal History: Reports: Fracture Other Musculoskeletal History: hx of fx fingers, "Possible arthritis" Neurological History: Reports: TIA Other Neuro History: was thought to have a TIA 2 years ago because of left sided numbness- no treatment and no residual symptoms Psychiatric History: Reports: Depression Other Psychiatric History: depression in the past after cancer diagnosis, none recently Endocrine/Metabolic History: Reports: None Hematologic History: Reports: None Immunologic History: Reports: None Oncologic (Cancer) History: Reports: Renal Other Oncologic History: 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 Dermatologic History: Reports: None - Infectious Disease History Infectious Disease History: Reports: None - Past Surgical History Head Surgeries/Procedures: Reports: None HEENT Surgical History: Reports: None Cardiovascular Surgical History: Reports: None Respiratory Surgical History: Reports: None GI Surgical History: Reports: Colonoscopy Male Surgical History: Reports: TURBT-Transurethral Resection of Bladder Tumor, Other (See Below) Other Male Surgeries/Procedures: multiple Cystourethroscopies for debulking of cancer about 20-ti cysctoscopies per patient Endocrine Surgical History: Reports: None Neurological Surgical History: Reports: None Musculoskeletal Surgical History: Reports: None Oncologic Surgical History: Reports: Other (See Below) Other Oncologic Surgeries/Procedures: chemo this last Sep and Oct, Dermatological Surgical History: Reports: None - SUBSTANCE USE Smoking Status *Q: Light Tobacco Smoker Tobacco Use Within Last Twelve Months: Cigarettes - HOME MEDS Home Medications: Home Meds Omeprazole Magnesium [Prilosec Otc] 20 mg PO DAILY PRN 01/25/19 [History] Varenicline Tartrate [Chantix] 1 tab PO BID 11/27/19 [History] Ascorbic Acid [Vitamin C] 1,000 mg PO DAILY 03/02/20 [History] Diclofenac Sodium 50 mg PO ASDIRECTED PRN 03/02/20 [History] Multivitamin [Multivitamins] 1 tab PO DAILY 03/02/20 [History] Rosuvastatin Calcium 10 mg PO DAILY 03/02/20 [History] - CURRENT (IN HOUSE) MEDS Current Meds: Current Medications Lactated Ringer's (Ringers, Lactated) 1,000 mls @ 100 mls/hr IV ASDIRECTED KIKO Last Admin: 03/05/20 07:20 Dose: 100 mls/hr Discontinued Medications Dexamethasone (Dexamethasone) Confirm Administered Dose 20 mg .ROUTE .STK-MED ONE Stop: 03/05/20 07:23 Fentanyl (Sublimaze) Confirm Administered Dose 100 mcg .ROUTE .STK-MED ONE Stop: 03/05/20 07:23 Cefazolin Sodium/Dextrose 2 gm (/ Premix) 50 mls @ 100 mls/hr IV ONCALL ONE Stop: 01/21/20 00:34 Lactated Ringer's (Ringers, Lactated) 1,000 mls @ 100 mls/hr IV ASDIRECTED KIKO Cefazolin Sodium/Dextrose 1 gm (/ Premix) 50 mls @ 100 mls/hr IV ONCALL ONE Stop: 03/05/20 00:30 Lidocaine (Xylocaine-Mpf 2%) Confirm Administered Dose 5 ml .ROUTE .STK-MED ONE Stop: 03/05/20 07:23 Midazolam HCl (Versed 1 Mg/Ml) Confirm Administered Dose 2 mg .ROUTE .STK-MED ONE Stop: 03/05/20 07:23 Ondansetron HCl (Zofran) Confirm Administered Dose 4 mg .ROUTE .STK-MED ONE Stop: 03/05/20 07:23 Propofol (Diprivan 20 Ml) Confirm Administered Dose 200 mg .ROUTE .STK-MED ONE Stop: 03/05/20 07:24 Sodium Chloride (Saline Flush) 10 ml FLUSH ASDIRECTED PRN PRN Reason: Keep Vein Open Sodium Chloride (Saline Flush) 2.5 ml FLUSH ASDIRECTED PRN PRN Reason: Keep Vein Open Sodium Chloride (Normal Saline) 10 ml IV ASDIRECTED PRN PRN Reason: IV Use
[2020-03-05] MEDS ORDERED: Iopamidol 200-M 10 ML vial ITHECAL ONE ×2 (09:07→09:55)
[2020-03-05] MEDS ORDERED: Albuterol 0.083% 2.5 MG/3 ML Neb Soln NEB PRN (09:42)
[2020-03-05] MEDS ORDERED: 50% Dextrose in Water 50 ML Syringe IVPUSH PRN (09:42)
[2020-03-05] MEDS ORDERED: Naloxone 0.4 MG/ML Syringe IVPUSH PRN (09:42)
[2020-03-05] MEDS ORDERED: EPINEPHrine 1:10,000 1 MG/10 ML Syringe IVPUSH PRN (09:42)
[2020-03-05] MEDS ORDERED: Atropine 0.1 MG/ML 10 ML Syringe IVPUSH PRN ×2 (09:42)
[2020-03-05] MEDS ORDERED: fentaNYL 100 MCG/2 ML SDV IVPUSH PRN (09:42)
[2020-03-05] MEDS ORDERED: Rocuronium 100 MG/10 ML Syringe ONE (09:46)
[2020-03-05] MEDS ORDERED: Glycopyrrolate 0.2 MG/ML SDV ONE (10:05)
[2020-03-05] MEDS ORDERED: ePHEDrine 50 MG/ML SDV ONE (10:12)
[2020-03-05] MEDS ORDERED: Sodium Chloride 0.9% 20 ML ONE (10:12)
[2020-03-05] MEDS ORDERED: Non-Formulary Medication 1 Each (Omeprazole Magnesium [Prilosec Otc] 20 MG) PO PRN (10:40)
[2020-03-05] MEDS ORDERED: Diclofenac Sodium 50 MG Tab.EC PO PRN (10:40)
--- NOTE | 2020-03-05 11:00 | PCM.POSTAN ---
POST ANESTHESIA ASSESSMENT - MENTAL STATUS Mental Status: Alert, Oriented - VITAL SIGNS Vital Signs: Last Vital Signs Temp 36.0 C L 03/05/20 10:38 Pulse 60 03/05/20 10:52 Resp 9 L 03/05/20 10:52 BP 144/83 H 03/05/20 10:52 Pulse Ox 100 03/05/20 10:52 - RESPIRATORY Respiratory Status: Respiratory Rate WNL, Airway Patent, O2 Saturation Stable - CARDIOVASCULAR CV Status: Pulse Rate WNL, Blood Pressure Stable - GASTROINTESTINAL GI Status: No Symptoms - PAIN Pain Score: 0 - POST OP HYDRATION Hydration Status: Adequate & Stable - OBSERVATIONS Free Text/Narrative:: No anesthesia problems
--- NOTE | 2020-03-05 11:16 | CR ---
Retrograde pyelogram: 5 fluoroscopic spot views were obtained of retrograde pyelogram presumably on the right side. Slight blunting of the calyces are noted. Contrast is noted within the mid ureter which appears without dilatation. Fluoroscopy time given as 16.7 seconds. Impression: 1. Procedural study as noted above. Diagnostic code #2 This report was dictated in MDT
--- NOTE | 2020-03-05 12:38 | OR ---
SURGEON: Saurabh Davis M.D. 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 PRIMARY SURGEON: Saurabh Davis M.D. OPERATION: Ureteroscopy, renoscopy, cystoscopy, and fulguration of right renal pelvis tumor. DESCRIPTION OF PROCEDURE: The patient was given general anesthesia. A retrograde pyelogram was done, showed filling defect in a right lower pole calyx. A guidewire was advanced in the right ureter all the way up into the renal pelvis. The flexible ureteroscope was advanced over that. The tumor was identified and fulgurated. With that done, the procedure was terminated. There was no significant bleeding. The bladder was examined and showed no recurrent tumors. With that done, the procedure was terminated. The patient was moved to recovery room in good condition. He will be back for another renoscopy in 4 months. BALDO / RED /[id number]
--- NOTE | 2020-03-05 12:50 | PCM48HPAN ---
Post Anesthesia Note - EVALUATION WITHIN 48HRS OF ANESTHETIC Vital Signs in Normal Range: Yes Patient Participated in Evaluation: Yes Respiratory Function Stable: Yes Airway Patent: Yes Cardiovascular Function Stable: Yes Hydration Status Stable: Yes Pain Control Satisfactory: Yes Nausea and Vomiting Control Satisfactory: Yes Mental Status Recovered: Yes Vital Signs: Last Vital Signs Temp 36.0 C L 03/05/20 10:38 Pulse 57 L 03/05/20 10:57 Resp 9 L 03/05/20 10:57 BP 144/85 H 03/05/20 10:57 Pulse Ox 96 03/05/20 10:57 - COMMENTS/OBSERVATIONS Free Text/Narrative:: No anesthesia problems
[2020-03-05 14:25] VITALS: BP 146/70; PULSE 48
[2020-03-05] MEDS ORDERED: VARENICLINE TARTRATE PO SCH (21:00)
[2020-03-06] MEDS ORDERED: Non-Formulary Medication 1 Each (Multivitamin [Multivitamins] 1 TAB) PO SCH (09:00)
[2020-03-06] MEDS ORDERED: Rosuvastatin 10 MG Tab PO SCH (09:00)
[2020-03-06] MEDS ORDERED: Non-Formulary Medication 1 Each (Ascorbic Acid [Vitamin C] 1,000 MG) PO SCH (09:00)
== END 2020-03-05 13:00 | disposition home or self-care (01) ==
LOC: MW.SDS 08:01
PROVIDERS: ATTEND Urology
DX: C65.1 Malignant neoplasm of right renal pelvis (principal); K21.9 Gastro-esophageal reflux disease without esophagitis; D12.6 Benign neoplasm of colon, unspecified; F17.210 Nicotine dependence, cigarettes, uncomplicated; Z11.59 Encounter for screening for other viral diseases; Z88.5 Allergy status to narcotic agent
CPT/HCPCS: 52354; 76000; 87635; C1769; J0690; J1100; J2001; J2250; J2405; J2704; J3010; J3490; J7120; Q9966; 00912; U0002

== ENCOUNTER 2020-06-15 15:01 | Emergency (ER) | payer OTHER ==
--- NOTE | 2020-06-15 15:29 | EDM.PDOC ---
ED HPI GENERAL MEDICAL PROBLEM - General Chief Complaint: ENT Problem Stated Complaint: CANT HEAR LEFT EAR Time Seen by Provider: 06/15/20 15:05 Source of Information: Reports: Patient History Limitations: Reports: No Limitations - History of Present Illness INITIAL COMMENTS - FREE TEXT/NARRATIVE: HISTORY AND PHYSICAL: History of present illness: Patient is a 59-year-old male who presents to the ED today with concern of bilateral cerumen impaction. Patient states he has had issues with earwax buildup in the past and started having issues with hearing out of his left ear over the past couple days. Patient states he does feel as if both ears are clogged but is having worse hearing in his left. Patient denies any trauma or injury. Patient denies fever, chills, chest pain, shortness of breath, or cough. Denies headache, neck stiff ness, change in vision, syncope, or near syncope. Denies nausea, vomiting, abdominal pain, diarrhea, constipation, or dysuria. Has not noted any blood in urine or stool. Patient has been eating and drinking appropriately. Review of systems: As per history of present illness and below otherwise all systems reviewed and negative. Past medical history: As per history of present illness and as reviewed below otherwise noncontributory. Surgical history: As per history of present illness and as reviewed below otherwise noncontributo ry. Social history: See social history for further information Family history: As per history of present illness and as reviewed below otherwise noncontributory. Physical exam: General: Patient is alert, oriented, and in no acute distress. Patient sitting comfortably on exam table. HEENT: Atraumatic, normocephalic, pupils equal and reactive bilaterally, negative for conjunctival pallor or scleral icterus, mucous membranes moist, bilateral cerumen impaction, throat clear, neck supple, nontender, trachea midline. No drooling or trismus noted. No meningeal signs. No hot potato voice noted. Lungs: Clear to auscultation, breath sounds equal bilaterally, chest nontender. Heart: S1S2, regular rate and rhythm without overt murmur Abdomen: Soft, nondistended, nontender. Negative for masses or hepatosplenomegaly. Negative for costovertebral tenderness. Pelvis: Stable nontender. Genitourinary: Deferred. Rectal: Deferred. Skin: Intact, warm, dry. No lesions or rashes noted. Extremities: Atraumatic, negative for cords or calf pain. Neurovascular unremarkable. Neuro: Awake, alert, oriented. Cranial nerves II through XII unremarkable. Cerebellum unremarkable. Motor and sensory unremarkable throughout. Exam nonfocal. Notes: After cerumen removal, able to visualize the bilateral TMs and they are nonerythematous, nonbulging, and intact. Discussed importance for follow-up with primary care provider. Voices understanding and is agreeable to plan of care. Denies any further questions or concerns at this time. Diagnostics: None Therapeutics: Colace with saline irrigation of both ears Prescription: None Impression: Bilateral cerumen impaction Plan: 1. Continue to use at home Debrox drops to prevent wax buildup as directed. 2. Follow-up with a primary care provider as discussed. Return to the ED as needed and as discussed. Definitive disposition and diagnosis as appropriate pending reevaluation and review of above. - Related Data Allergies Allergy/AdvReac Type Severity Reaction Status Date / Time codeine Allergy Nausea Verified 06/15/20 15:24 Home Meds: Home Meds Omeprazole Magnesium [Prilosec Otc] 20 mg PO DAILY PRN 01/25/19 [History] Varenicline Tartrate [Chantix] 1 tab PO BID 11/27/19 [History] Ascorbic Acid [Vitamin C] 1,000 mg PO DAILY 03/02/20 [History] Diclofenac Sodium 50 mg PO ASDIRECTED PRN 03/02/20 [History] Multivitamin [Multivitamins] 1 tab PO DAILY 03/02/20 [History] Rosuvastatin Calcium 10 mg PO DAILY 03/02/20 [History] Past Medical History - Past Health History Medical/Surgical History: Denies Medical/Surgical History HEENT History: Reports: Other (See Below) Other HEENT History: wears glasses, top and bottom partial Cardiovascular History: Reports: Heart Murmur, High Cholesterol Other Cardiovascular History: was told he had a murmur as a child- not detectable now Respiratory History: Reports: Other (See Below) Other Respiratory History: Reports 40 year history of smoking, states had pneumonia on Oct 23 2016 Gastrointestinal History: Reports: Colon Polyp, GERD Other Gastrointestinal History: Occasional heartburn treat with prilosec otc Genitourinary History: Reports: Renal Disease Other Genitourinary History: renal calyx cancer Musculoskeletal History: Reports: Fracture Other Musculoskeletal History: hx of fx fingers, "Possible arthritis" Neurological History: Reports: TIA Other Neuro History: was thought to have a TIA 2 years ago because of left sided numbness- no treatment and no residual symptoms Psychiatric History: Reports: Depression Other Psychiatric History: depression in the past after cancer diagnosis, none recently Endocrine/Metabolic History: Reports: None Hematologic History: Reports: None Immunologic History: Reports: None Oncologic (Cancer) History: Reports: Renal Other Oncologic History: 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 Dermatologic History: Reports: None - Infectious Disease History Infectious Disease History: Reports: None - Past Surgical History HEENT Surgical History: Reports: None Cardiovascular Surgical History: Reports: None Respiratory Surgical History: Reports: None GI Surgical History: Reports: Colonoscopy Male Surgical History: Reports: TURBT-Transurethral Resection of Bladder Tumor, Other (See Below) Other Male Surgeries/Procedures: multiple Cystourethroscopies for debulking of cancer about 20-ti cysctoscopies per patient Endocrine Surgical History: Reports: None Neurological Surgical History: Reports: None Musculoskeletal Surgical History: Reports: None Oncologic Surgical History: Reports: Other (See Below) Other Oncologic Surgeries/Procedures: chemo this last Sep and Oct, Dermatological Surgical History: Reports: None Social & Family History - Family History Family Medical History: Noncontributory HEENT: Reports: Cataract, Impaired Vision GI: Reports: Other (See Below) Other GI Family History: esophagus problems Endocrine/Metabolic: Reports: Diabetes, type II Oncologic: Reports: Esophageal - Tobacco Use Smoking Status *Q: Current Every Day Smoker Years of Tobacco use: 45 Packs/Tins Daily: 0.5 - Caffeine Use Caffeine Use: Reports: None - Recreational Drug Use Recreational Drug Use: No ED ROS GENERAL - Review of Systems Review Of Systems: Comprehensive ROS is negative, except as noted in HPI. ED EXAM, GENERAL - Physical Exam Exam: See Below (see dictation) Course - Vital Signs Last Recorded V/S: Last Vital Signs Temp 96.7 F L 06/15/20 15:25 Pulse 72 06/15/20 15:25 Resp 17 06/15/20 15:25 BP 145/86 H 06/15/20 15:25 Pulse Ox 97 06/15/20 15:25 - Orders/Labs/Meds Meds: Medications Discontinued Medications Generic Name Dose Route Start Last Admin Trade Name Linda PRN Reason Stop Dose Admin Docusate Sodium 2 mg 06/15/20 15:41 06/15/20 16:14 Colace 50 Mg/5 Ml Liquid PO 06/15/20 15:42 2 mg ONETIME ONE Administration Departure - Departure Time of Disposition: 17:32 Disposition: Home, Self-Care 01 Clinical Impression: Impacted cerumen of both ears - Discharge Information Referrals: Tammie Marcelo NP [Primary Care Provider] - Forms: ED Department Discharge Additional Instructions: The following information is given to patients seen in the emergency department who are being discharged to home. This information is to outline your options for follow-up care. We provide all patients seen in our emergency department with a follow-up referral. The need for follow-up, as well as the timing and circumstances, are variable depending upon the specifics of your emergency department visit. If you don't have a primary care physician on staff, we will provide you with a referral. We always advise you to contact your personal physician following an emergency department visit to inform them of the circumstance of the visit and for follow-up with them and/or the need for any referrals to a consulting specialist. The emergency department will also refer you to a specialist when appropriate. This referral assures that you have the opportunity for follow-up care with a specialist. All of these measure are taken in an effort to provide you with optimal care, which includes your follow-up. Under all circumstances we always encourage you to contact your private physician who remains a resource for coordinating your care. When calling for follow-up care, please make the office aware that this follow-up is from your recent emergency room visit. If for any reason you are refused follow-up, please contact the [facility] at and asked to speak to the emergency department charge nurse. [facility] [address] [place] [id number] [address] [id number] 1. Continue to use at home Debrox drops to prevent wax buildup as directed. 2. Follow-up with a primary care provider as discussed. Return to the ED as needed and as discussed. Sepsis Event Note (ED) - Evaluation Sepsis Screening Result: No Definite Risk - Focused Exam Vital Signs: Vital Signs Temp Pulse Resp BP Pulse Ox 06/15/20 15:25 96.7 F L 72 17 145/86 H 97
[2020-06-15] MEDS ORDERED: Docusate Sodium Liquid 100 MG/10 ML UD Cup PO ONE (15:41)
[2020-06-15 17:39] VITALS: BP 149/80; PULSE 62
== END 2020-06-15 17:45 | disposition home or self-care (01) ==
LOC: MW.ED 15:01
DX: H61.23 Impacted cerumen, bilateral (principal); E78.00 Pure hypercholesterolemia, unspecified; K21.9 Gastro-esophageal reflux disease without esophagitis; F17.210 Nicotine dependence, cigarettes, uncomplicated; Z88.5 Allergy status to narcotic agent; Z79.899 Other long term (current) drug therapy
CPT/HCPCS: 69209; 99282; A9270

== ENCOUNTER 2020-07-14 06:44 | Observation (INO) | payer OTHER ==
[~2020-07-14 06:44] MED LIST changes: -Dexamethasone 4 MG/ML 5 ML MDV ONE; -Lidocaine 2% 5 ML SDV ONE; -Midazolam 1 MG/ML 2 ML SDV ONE; -Ondansetron 4 MG/2 ML SDV ONE; -Propofol 200 MG/20 ML SDV ONE; -ceFAZolin 1 GM Vial IV ONE; -ceFAZolin 2 GM in Premix Bag 1 BAG IV ONE; -fentaNYL 100 MCG/2 ML SDV ONE
[2020-07-14] MEDS ORDERED: Midazolam 1 MG/ML 2 ML SDV ONE (07:07)
[2020-07-14] MEDS ORDERED: fentaNYL 100 MCG/2 ML SDV ONE (07:07)
[2020-07-14] MEDS ORDERED: Propofol 200 MG/20 ML SDV ONE (07:07)
[2020-07-14] MEDS ORDERED: Ondansetron 4 MG/2 ML SDV ONE (07:08)
--- NOTE | 2020-07-14 07:25 | PCM.PREANE ---
Preanesthetic Assessment - Anesthesia/Transfusion/Family Hx Anesthesia History: Prior Anesthesia Without Reaction Other Type of Anesthesia Reaction Comment: "broken teeth during anesthesia, bit down on tube to hard" Family History of Anesthesia Reaction: No Transfusion History: No Prior Transfusion(s) Intubation History: Unknown - Review of Systems General: No Symptoms Pulmonary: No Symptoms Cardiovascular: No Symptoms Gastrointestinal: No Symptoms Neurological: No Symptoms Other: Reports: None - Physical Assessment NPO Status Date: 07/13/20 Height: 5 ft 11 in Weight: 89.811 kg ASA Class: 2 Mental Status: Alert & Oriented x3 Airway Class: Mallampati = 2 Dentition: Reports: Normal Dentition ROM/Head Extension: Full Lungs: Clear to Auscultation, Normal Respiratory Effort Cardiovascular: Regular Rate, Regular Rhythm - Allergies Allergies/Adverse Reactions: Allergies Allergy/AdvReac Type Severity Reaction Status Date / Time codeine Allergy Nausea Verified 07/09/20 14:27 - Acknowledgements Anesthesia Type Planned: General Anesthesia Pt an Appropriate Candidate for the Planned Anesthesia: Yes Alternatives and Risks of Anesthesia Discussed w Pt/Guardian: Yes Pt/Guardian Understands and Agrees with Anesthesia Plan: Yes Additional Comments: pmh: smoker plan ga/l,ma PreAnesthesia Questionnaire - Past Health History Medical/Surgical History: Denies Medical/Surgical History HEENT History: Reports: Other (See Below) Other HEENT History: wears glasses; has upper and lower partial plates Cardiovascular History: Reports: None Other Cardiovascular History: was told he had a murmur as a child- not detectable now Respiratory History: Reports: None Other Respiratory History: Reports 40 year history of smoking, states had pneumonia on Oct 23 2016 Gastrointestinal History: Reports: Colon Polyp Other Gastrointestinal History: Occasional heartburn treat with prilosec otc Genitourinary History: Reports: Renal Disease Other Genitourinary History: states has renal calyx cancer and has had chemo Musculoskeletal History: Reports: Fracture Other Musculoskeletal History: states has had fractured fingers in the past Neurological History: Reports: TIA Other Neuro History: States has had 2 TIA's 3-4 yrs ago with no residual. 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 Dermatologic History: Reports: None - Infectious Disease History Infectious Disease History: Reports: None - Past Surgical History Head Surgeries/Procedures: Reports: None GI Surgical History: Reports: Colonoscopy Male Surgical History: Reports: TURBT-Transurethral Resection of Bladder Tumor Other Male Surgeries/Procedures: states has had multi cystourethroscopies for debulking of cancer - SUBSTANCE USE Smoking Status *Q: Current Every Day Smoker Tobacco Use Within Last Twelve Months: Cigarettes - HOME MEDS Home Medications: Home Meds Omeprazole Magnesium [Prilosec Otc] 20 mg PO DAILY PRN 01/25/19 [History] Ascorbic Acid [Vitamin C] 500 mg PO DAILY 03/02/20 [History] Diclofenac Sodium 50 mg PO ASDIRECTED PRN 03/02/20 [History] Multivitamin [Multivitamins] 1 tab PO DAILY 03/02/20 [History] Meloxicam [Mobic] 1 tab PO ASDIRECTED PRN 07/09/20 [History] - CURRENT (IN HOUSE) MEDS Current Meds: Current Medications Lactated Ringer's (Ringers, Lactated) 1,000 mls @ 100 mls/hr IV ASDIRECTED KIKO Sodium Chloride (Saline Flush) 2.5 ml FLUSH ASDIRECTED PRN PRN Reason: Keep Vein Open Sodium Chloride (Normal Saline) 10 ml IV ASDIRECTED PRN PRN Reason: IV Use Sodium Chloride (Saline Flush) 10 ml FLUSH ASDIRECTED PRN PRN Reason: Keep Vein Open Discontinued Medications Fentanyl (Sublimaze) Confirm Administered Dose 100 mcg .ROUTE .STK-MED ONE Stop: 07/14/20 07:08 Cefazolin Sodium/Dextrose 1 gm (/ Premix) 50 mls @ 100 mls/hr IV ONCALL ONE Stop: 07/14/20 00:30 Lidocaine HCl (Xylocaine-Mpf 1%) Confirm Administered Dose 5 ml .ROUTE .STK-MED ONE Stop: 07/14/20 07:09 Midazolam HCl (Versed 1 Mg/Ml) Confirm Administered Dose 2 mg .ROUTE .STK-MED ONE Stop: 07/14/20 07:08 Ondansetron HCl (Zofran) Confirm Administered Dose 4 mg .ROUTE .STK-MED ONE Stop: 07/14/20 07:09 Propofol (Diprivan 20 Ml) Confirm Administered Dose 200 mg .ROUTE .[facility] ONE Stop: 07/14/20 07:08
[2020-07-14] MEDS ORDERED: Albuterol 0.083% 2.5 MG/3 ML Neb Soln NEB PRN (07:52)
[2020-07-14] MEDS ORDERED: 50% Dextrose in Water 50 ML Syringe IVPUSH PRN (07:52)
[2020-07-14] MEDS ORDERED: Naloxone 0.4 MG/ML Syringe IVPUSH PRN (07:52)
[2020-07-14] MEDS ORDERED: EPINEPHrine 1:10,000 1 MG/10 ML Syringe IVPUSH PRN (07:52)
[2020-07-14] MEDS ORDERED: Atropine 0.1 MG/ML 10 ML Syringe IVPUSH PRN ×2 (07:52)
[2020-07-14] MEDS ORDERED: HYDROmorphone 2 MG/ML Syringe IVPUSH PRN (07:58)
[2020-07-14] MEDS ORDERED: Ondansetron 4 MG/2 ML SDV IVPUSH PRN (07:58)
[2020-07-14] MEDS ORDERED: Succinylcholine/Sod PF 100 MG/5 ML SYRINGE IV ONE (08:22)
[2020-07-14] MEDS ORDERED: Rocuronium Bromide 50 MG/5 ML Syringe ONE (08:22)
[2020-07-14] MEDS ORDERED: Iopamidol 408 MG/ML 20 ML SDV ONE ×3 (08:54→09:58)
[2020-07-14] MEDS ORDERED: ePHEDrine 50 MG/ML SDV ONE (08:59)
[2020-07-14] MEDS ORDERED: Dexamethasone 4 MG/ML 5 ML MDV ONE (09:17)
[2020-07-14] MEDS ORDERED: Ketorolac 30 MG/ML SDV ONE (09:17)
[2020-07-14] MEDS ORDERED: Glycopyrrolate 0.2 MG/ML SDV ONE (09:27)
[2020-07-14] MEDS: fentaNYL 100 MCG/2 ML SDV IVPUSH PRN ×2 (10:40→10:47)
--- NOTE | 2020-07-14 11:14 | PCM.POSTAN ---
POST ANESTHESIA ASSESSMENT - MENTAL STATUS Mental Status: Alert, Oriented - VITAL SIGNS Vital Signs: Last Vital Signs Temp 97.9 F 07/14/20 10:32 Pulse 51 L 07/14/20 11:08 Resp 8 L 07/14/20 11:08 BP 137/81 07/14/20 11:08 Pulse Ox 94 L 07/14/20 11:08 - RESPIRATORY Respiratory Status: Respiratory Rate WNL, Airway Patent, O2 Saturation Stable - CARDIOVASCULAR CV Status: Pulse Rate WNL, Blood Pressure Stable - GASTROINTESTINAL GI Status: No Symptoms - POST OP HYDRATION Hydration Status: Adequate & Stable
--- NOTE | 2020-07-14 12:04 | PCM48HPAN ---
Post Anesthesia Note - EVALUATION WITHIN 48HRS OF ANESTHETIC Vital Signs in Normal Range: Yes Patient Participated in Evaluation: Yes Respiratory Function Stable: Yes Airway Patent: Yes Cardiovascular Function Stable: Yes Hydration Status Stable: Yes Pain Control Satisfactory: Yes Nausea and Vomiting Control Satisfactory: Yes Mental Status Recovered: Yes Vital Signs: Last Vital Signs Temp 97.9 F 07/14/20 10:32 Pulse 51 L 07/14/20 11:08 Resp 8 L 07/14/20 11:08 BP 137/81 07/14/20 11:08 Pulse Ox 94 L 07/14/20 11:08 - COMMENTS/OBSERVATIONS Free Text/Narrative:: Pt does have slight swelling on the left side of his upper lip, but states that he gets this type of lip swelling when he takes ibuprofen. May give benedryl if needed, but otherwise pt is stable with no complaints.
[2020-07-14] MEDS ORDERED: diphenhydrAMINE 25 MG Cap PO SCH (12:30)
--- NOTE | 2020-07-14 13:11 | PCM.SN.2 ---
- Free Text/Narrative Note: Received report that patient had LEFT upper lip swelling that has progressively increased throughout his recovery. The patient states that this has occurred with ibuprofen in the past. He did not state this adverse reaction PRIOR to his surgery. We suspect that this is an adverse reaction to Toradol. The patient's saturation has ranged from 88-92% which was witnessed by me during my evaluation which led me to the decision to admit him for [address] Ventura was contacted and the patient's perioperative course was discussed. She accepted the patient. This was discussed with the patient and he is willing to stay. The plan: 1. Admit patient for [address] Davis was notified and is aware. 3. Benadryl 25 mg po. One dose given in phase 2 recovery. 3. Prednisone 40 mg po. One dose was given in phase 2 recovery. 4. IV will be started in phase 2 recovery. 5. Continuous pulse oximetry monitor will occur. 6. Anesthesia team will post-op in AM. If you have any questions, feel free to contact me (Dr. Jose Eduardo Foley).
--- NOTE | 2020-07-14 13:47 | OR ---
SURGEON: Saurabh Davis M.D. DATE OF PROCEDURE: 07/14/2020 PREOPERATIVE DIAGNOSIS: Right low-grade renal pelvis tumors. POSTOPERATIVE DIAGNOSES: Right low-grade renal pelvis tumors, right mid ureteral tumor, papillary. OPERATION: Renoscopy, fulguration of renal pelvis tumor in the mid pole calyx, biopsy, and fulguration incomplete of a relatively bulky about 1.5 to 2 cm right ureteral tumor. DESCRIPTION OF PROCEDURE: The patient was given general anesthesia. He is intubated. The cystoscope was placed in the bladder. A guidewire was easily advanced in the right ureter all the way up into the renal pelvis over which a flexible ureteroscope was advanced. The guidewire was removed. The papillary tumors in the mid pole calyx were fulgurated. Retrograde study did not show any significant filling defects, but that study appears incomplete as part of the collecting system did not fill with the dye. After that part is accomplished in the inside of the kidney, it is safe, the flexible ureteroscope was withdrawn looking at the ureter until we reached the lower end of the mid ureter, which showed a relatively bulky papillary tumor. The rigid ureteroscope was then used to gain access and better visualization. To that, a biopsy was done using a grasper and a Zero Tip basket. The were fulgurated. The majority of the tumor is still in place until I find a better way to get rid of it, would probably have to be the ureteral resectoscope. With that done, the procedure was terminated. In the process, sterile saline was used for washing the inside of the renal pelvis and that was sent for cytology. The patient tolerated both procedures well and was moved to recovery room in good condition. BALDO / RED /[id number]
[2020-07-14] MEDS ORDERED: diphenhydrAMINE 50 MG/ML SDV IVPUSH PRN (13:54)
[2020-07-14] MEDS ORDERED: Famotidine 20 MG/2 ML SDV IVPUSH ONE (13:54)
[2020-07-14] MEDS ORDERED: diphenhydrAMINE 50 MG/ML SDV IVPUSH ONE (13:55)
--- NOTE | 2020-07-14 14:03 | PCM.HP.2 ---
H&P History of Present Illness - General Date of Service: 07/14/20 Admit Problem/Dx: Admission Diagnosis/Problem Admission Diagnosis/Problem Angioedema Source of Information: Patient History Limitations: Reports: No Limitations - History of Present Illness Initial Comments - Free Text/Narative: This 59 year old male with pmh of renal cell carcinoma had procedure with Dr Alessio garcia, post procedure he was given Toradol IV and started having L upper lip swelling. No airway compromise or stridor noted. Sats noted to dip into the high 80s. He is alert and oriented. Anesthesia requested admission for 24 horu monitoring. He was given Bendryl and Prednisone in the PACU. Esteban arrives to the unit today, alert and oriented. He is breathing well wth no complaints. No chest pain or SOB. No fevers or chills. He is requesting food. - Related Data Allergies/Adverse Reactions: Allergies Allergy/AdvReac Type Severity Reaction Status Date / Time ibuprofen Allergy Intermediate Swelling Verified 07/14/20 12:11 codeine Allergy Nausea Verified 07/09/20 14:27 Toradol Allergy Mild Swelling Uncoded 07/14/20 12:11 Home Medications: Home Meds Omeprazole Magnesium [Prilosec Otc] 20 mg PO DAILY PRN 01/25/19 [History] Ascorbic Acid [Vitamin C] 500 mg PO DAILY 03/02/20 [History] Diclofenac Sodium 50 mg PO ASDIRECTED PRN 03/02/20 [History] Multivitamin [Multivitamins] 1 tab PO DAILY 03/02/20 [History] Meloxicam [Mobic] 1 tab PO ASDIRECTED PRN 07/09/20 [History] Past Medical History - Past Health History Medical/Surgical History: Denies Medical/Surgical History HEENT History: Reports: Other (See Below) Other HEENT History: wears glasses; has upper and lower partial plates Cardiovascular History: Reports: None Other Cardiovascular History: was told he had a murmur as a child- not detectable now Respiratory History: Reports: None Other Respiratory History: Reports 40 year history of smoking, states had pneumonia on Oct 23 2016 Gastrointestinal History: Reports: Colon Polyp Other Gastrointestinal History: Occasional heartburn treat with prilosec otc Genitourinary History: Reports: Renal Disease Other Genitourinary History: states has renal calyx cancer and has had chemo Musculoskeletal History: Reports: Fracture Other Musculoskeletal History: states has had fractured fingers in the past Neurological History: Reports: TIA Other Neuro History: States has had 2 TIA's 3-4 yrs ago with no residual. 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 Dermatologic History: Reports: None - Infectious Disease History Infectious Disease History: Reports: None - Past Surgical History Head Surgeries/Procedures: Reports: None HEENT Surgical History: Reports: None Cardiovascular Surgical History: Reports: None Respiratory Surgical History: Reports: None GI Surgical History: Reports: Colonoscopy Male Surgical History: Reports: TURBT-Transurethral Resection of Bladder Tumor Other Male Surgeries/Procedures: states has had multi cystourethroscopies for debulking of cancer Endocrine Surgical History: Reports: None Neurological Surgical History: Reports: None Musculoskeletal Surgical History: Reports: None Oncologic Surgical History: Reports: Other (See Below) Other Oncologic Surgeries/Procedures: chemo this last Sep and Oct, Dermatological Surgical History: Reports: None Social & Family History - Family History Family Medical History: Noncontributory HEENT: Reports: Cataract, Impaired Vision GI: Reports: Other (See Below) Other GI Family History: esophagus problems Endocrine/Metabolic: Reports: Diabetes, type II Oncologic: Reports: Esophageal - Tobacco Use Smoking Status *Q: Current Every Day Smoker Years of Tobacco use: 45 - Caffeine Use Caffeine Use: Reports: None - Recreational Drug Use Recreational Drug Use: Yes Recreational Drug Type: Reports: Marijuana/Hashish (every couple days.) H&P Review of Systems - Review of Systems: Review Of Systems: See Below General: Reports: No Symptoms. Denies: Fever, Chills, Malaise, Weakness HEENT: Reports: Other (L upper lip swelling, improved since earlier) Pulmonary: Reports: No Symptoms. Denies: Shortness of Breath Cardiovascular: Reports: No Symptoms. Denies: Chest Pain Gastrointestinal: Reports: No Symptoms. Denies: Abdominal Pain, Black Stool, Bloody Stool, Nausea, Vomiting Genitourinary: Reports: No Symptoms. Denies: Dysuria, Frequency, Burning Musculoskeletal: Reports: No Symptoms Skin: Reports: No Symptoms Psychiatric: Reports: No Symptoms Neurological: Reports: No Symptoms Hematologic/Lymphatic: Reports: No Symptoms Immunologic: Reports: No Symptoms Exam - Exam Exam: See Below - Vital Signs Vital Signs: Last Vital Signs Temp 97.9 F 07/14/20 10:32 Pulse 51 L 07/14/20 11:08 Resp 8 L 07/14/20 11:08 BP 137/81 07/14/20 11:08 Pulse Ox 94 L 07/14/20 11:08 Weight: 89.811 kg - Exam General: Alert, Oriented, Cooperative HEENT: Conjunctiva Clear, Posterior Pharynx Clear, Other (L upper oral labia swollen. No erythem noted. Patient reports it is better in appearance since earlier) Neck: Supple, Trachea Midline Lungs: Clear to Auscultation, Normal Respiratory Effort GI/Abdominal Exam: Normal Bowel Sounds, Soft, Non-Tender Extremities: Normal Inspection, Normal Range of Motion, Non-Tender, No Pedal Edema Neuro Extensive - Mental Status: Alert, Oriented x3 Neuro Extensive - Motor, Sensory, Reflexes: CN II-XII Intact, Normal Gait Psychiatric: Alert, Normal Affect, Normal Mood Sepsis Event Note - Focused Exam Vital Signs: Vital Signs Temp Pulse Resp BP Pulse Ox 07/14/20 11:08 51 L 8 L 137/81 94 L 07/14/20 11:03 61 8 L 132/85 93 L 07/14/20 10:59 54 L 8 L 139/84 94 L 07/14/20 10:54 60 12 148/79 H 96 07/14/20 10:49 61 8 L 136/75 96 07/14/20 10:45 60 10 L 130/79 94 L 07/14/20 10:40 63 24 H 139/73 97 07/14/20 10:32 97.9 F 70 13 106/76 97 07/14/20 07:15 97.2 F 60 15 127/68 95 - Problem List (1) Angio-edema SNOMED Code(s): 51172986 ICD Code: T78.3XXA - ANGIONEUROTIC EDEMA, INITIAL ENCOUNTER Status: Acute Current Visit: Yes (2) Hx TIA/stroke w/o resid SNOMED Code(s): 007127620, 909054137, 979767672 ICD Code: Z86.73 - PRSNL HX OF TIA (TIA), AND CEREB INFRC W/O RESID DEFICITS Status: Chronic Current Visit: Yes (3) Renal cell carcinoma SNOMED Code(s): 864175225, 441214458 ICD Code: C64.9 - MALIGNANT NEOPLASM OF UNSP KIDNEY, EXCEPT RENAL PELVIS Status: Chronic Current Visit: Yes Problem List Initiated/Reviewed/Updated: Yes Orders Last 24hrs: Active Orders 24 hr Category Date Time Status Patient Status [ADT] Stat ADT 07/14/20 13:48 Ordered Antiembolic Devices [RC] PER UNIT ROUTINE Care 07/14/20 14:00 Ordered Intake and Output [RC] QSHIFT Care 07/14/20 13:56 Ordered Oxygen Therapy [RC] PRN Care 07/14/20 13:56 Ordered RT Aerosol Therapy [RC] ASDIRECTED Care 07/14/20 07:52 Active Up With Assistance [RC] ASDIRECTED Care 07/14/20 13:56 Ordered VTE/DVT Education [RC] PER UNIT ROUTINE Care 07/14/20 13:56 Ordered Vital Signs [RC] Q4H Care 07/14/20 13:56 Ordered Regular Diet [DIET] Diet 07/14/20 Lunch Ordered Fluoro>1Hr [CR] Routine Exams 07/14/20 09:56 Ordered Albuterol [Proventil Neb Soln] Med 07/14/20 07:52 Active 2.5 mg NEB ONETIME PRN Ascorbic Acid [Vitamin C] Med 07/15/20 09:00 Active 500 mg PO DAILY Famotidine [Pepcid] Med 07/14/20 13:54 Once 20 mg IVPUSH ONETIME ONE HYDROmorphone [Dilaudid] Med 07/14/20 07:58 Active 0.25 mg IVPUSH .Q5MIN PRN Loratadine [Claritin] Med 07/14/20 14:00 Ordered 10 mg PO DAILY Ondansetron [Zofran] Med 07/14/20 07:58 Active 4 mg IVPUSH ONETIME PRN Sodium Chloride 0.9% [Saline Flush] Med 07/14/20 00:01 Active 2.5 ml FLUSH ASDIRECTED PRN diphenhydrAMINE [Benadryl] Med 07/14/20 13:55 Once 25 mg IVPUSH ONETIME ONE diphenhydrAMINE [Benadryl] Med 07/14/20 12:30 Active 25 mg PO .ONETIME diphenhydrAMINE [Benadryl] Med 07/14/20 13:54 Ordered 50 mg IVPUSH Q6H PRN methylPREDNISolone Sod Succ [Solu-MEDROL] Med 07/14/20 22:00 Ordered 40 mg IVPUSH Q6H predniSONE Med 07/15/20 12:45 Once 40 mg PO ONETIME ONE Peripheral IV Insertion Adult [OM.PC] Routine Oth 07/14/20 00:01 Ordered Pulse Oximetry Continuous Monitoring [OM.PC] Routine Oth 07/14/20 13:55 Ordered Sequential Compression Device [OM.PC] Per Unit Routine Oth 07/14/20 13:57 Ordered Medication Orders Albuterol (Proventil Neb Soln) 2.5 mg NEB ONETIME PRN PRN Reason: Wheezing Ascorbic Acid (Vitamin C) 500 mg PO DAILY KIKO Diphenhydramine HCl (Benadryl) 25 mg PO .ONETIME KIKO Diphenhydramine HCl (Benadryl) 50 mg IVPUSH Q6H PRN PRN Reason: itching/swelling Diphenhydramine HCl (Benadryl) 25 mg IVPUSH ONETIME ONE Stop: 07/14/20 13:56 Famotidine (Pepcid) 20 mg IVPUSH ONETIME ONE Stop: 07/14/20 13:55 Hydromorphone HCl (Dilaudid) 0.25 mg IVPUSH .Q5MIN PRN PRN Reason: Pain (severe 7-10) Stop: 07/15/20 07:58 Loratadine (Claritin) 10 mg PO DAILY KIKO Methylprednisolone Sodium Succinate (Solu-Medrol) 40 mg IVPUSH Q6H KIKO Ondansetron HCl (Zofran) 4 mg IVPUSH ONETIME PRN PRN Reason: Nausea/Vomiting Prednisone (Prednisone) 40 mg PO ONETIME ONE Stop: 07/15/20 12:46 Sodium Chloride (Saline Flush) 2.5 ml FLUSH ASDIRECTED PRN PRN Reason: Keep Vein Open Assessment/Plan Comment:: This 59 year old male admitted for angioedema following Toradol administration 1. Angioedema - Monitor on continuous pulse ox - Give another dose benadryl now - Schedule Solumedrol 40 mg IV q 6, Pepcid daily, and Loratidine - Counseled on not taking NSAID products 2. Renal cell ca: - renoscopy and fulguration today with Dr Davis - Encourage PO intake - Will keep IVFs overnight LR 100. VTE prophylaxis: SCDs Dispo: 1 day
[2020-07-14] MEDS: Loratadine 10 MG Tab PO SCH (14:36)
[2020-07-14] MEDS: Nicotine 14 MG/24 Hr Patch TRDERM SCH (14:49)
[2020-07-14] MEDS: Lactated Ringers 1,000 ML IV SCH (15:16)
--- NOTE | 2020-07-14 16:18 | CR ---
Fluoroscopy for renal procedure. 4 fluoroscopic spot views were obtained of the right abdomen utilizing C-arm device during ureteroscopy. Filling defect is noted within the mid ureter presumably due to an obstructing stone. Please correlate that this does not represent an air bubble. Fluoroscopy time is given as 13.9 seconds. Impression: 1. Procedural study. Diagnostic code #2 Study was dictated in MDT
[2020-07-14] MEDS: methylPREDNISolone Sodium Succinate 40 MG/1 ML SDV IVPUSH SCH (21:22)
[2020-07-15] MEDS: Lactated Ringers 1,000 ML IV SCH (02:34)
[2020-07-15] MEDS: methylPREDNISolone Sodium Succinate 40 MG/1 ML SDV IVPUSH SCH ×2 (03:35→10:13)
--- NOTE | 2020-07-15 07:29 | PCM48HPAN ---
Post Anesthesia Note - EVALUATION WITHIN 48HRS OF ANESTHETIC Vital Signs in Normal Range: Yes Patient Participated in Evaluation: Yes Respiratory Function Stable: Yes Airway Patent: Yes Cardiovascular Function Stable: Yes Hydration Status Stable: Yes Pain Control Satisfactory: Yes Nausea and Vomiting Control Satisfactory: Yes Mental Status Recovered: Yes Vital Signs: Last Vital Signs Temp 36.4 C 07/15/20 04:09 Pulse 63 07/15/20 04:09 Resp 17 07/15/20 04:09 BP 134/71 07/15/20 04:09 Pulse Ox 95 07/15/20 04:09 - COMMENTS/OBSERVATIONS Free Text/Narrative:: Lip swelling resolved. Patient sitting up in bed, expresses gratitude for my concern and the 23 hour admission. He may be discharged. Discussed this with his overnight Nurse and Morning Nurse.
[2020-07-15] MEDS ORDERED: Ascorbic Acid 500 MG Tab PO SCH (09:00)
--- NOTE | 2020-07-15 09:13 | PCM.DCSUM1 ---
Discharge Summary - Hospital Course Brief History: this 59 year old male with pmh of renal cell carcinoma had procedure with Dr Davis, post procedure he was given Toradol IV and started having L upper lip swelling. No airway compromise or stridor noted. Sats noted to dip into the high 80s. He is alert and oriented. Anesthesia requested admission for 24 horu monitoring. He was given Bendryl and Prednisone in the PACU. Esteban arrives to the unit today, alert and oriented. He is breathing well wth no complaints. No chest pain or SOB. No fevers or chills. Diagnosis: Stroke: No - Discharge Data Discharge Date: 07/15/20 Discharge Disposition: Home, Self-Care 01 Condition: Good - Referral to Home Health Primary Care Physician: Tammie Marcelo NP - Discharge Diagnosis/Problem(s) (1) Angio-edema SNOMED Code(s): 91697859 ICD Code: T78.3XXA - ANGIONEUROTIC EDEMA, INITIAL ENCOUNTER Status: Acute (2) Hx TIA/stroke w/o resid SNOMED Code(s): 120996309, 321866838, 629796956 ICD Code: Z86.73 - PRSNL HX OF TIA (TIA), AND CEREB INFRC W/O RESID DEFICITS Status: Chronic (3) Renal cell carcinoma SNOMED Code(s): 714731816, 860880062 ICD Code: C64.9 - MALIGNANT NEOPLASM OF UNSP KIDNEY, EXCEPT RENAL PELVIS Status: Chronic - Patient Summary/Data Hospital Course: Admitting Diagnoses: Angio edema to NSAID Discharge Diagnoses: Angioedema to NSAID Esteban was admitted secondary to lip sweeling after receiving Toradol in PACU. He was treated with solumedrol and Loratadine overnight. This morning he is feeling much improved. I will send him home with Prednisone 40 mg x 4 more days and Loratadine. He is to return to the ED or clinic if concerns should arise. No use of NSAIDs, which was discussed with him at length. - Patient Instructions Diet: Regular Diet as Tolerated Activity: As Tolerated Driving: Do Not Drive Showering/Bathing: February Shower Notify Provider of: Fever, Increased Pain, Swelling and Redness, Drainage, Nausea and/or Vomiting Other/Special Instructions: Follow up with Dr. Davis on Monday, July 22 at 2:15pm - Discharge Plan *PRESCRIPTION DRUG MONITORING PROGRAM REVIEWED*: Not Applicable *COPY OF PRESCRIPTION DRUG MONITORING REPORT IN PATIENT MENDEZ: Not Applicable Prescriptions/Med Rec: Loratadine [Claritin] 10 mg PO DAILY #20 tablet predniSONE [Prednisone] 40 mg PO DAILY #8 tablet Home Medications: Home Meds Omeprazole Magnesium [Prilosec Otc] 20 mg PO DAILY PRN 01/25/19 [History] Ascorbic Acid [Vitamin C] 500 mg PO DAILY 03/02/20 [History] Multivitamin [Multivitamins] 1 tab PO DAILY 03/02/20 [History] Loratadine [Claritin] 10 mg PO DAILY #20 tablet 07/15/20 [Rx] predniSONE [Prednisone] 40 mg PO DAILY #8 tablet 07/15/20 [Rx] Oxygen Therapy Mode: Room Air Patient Handouts: Prednisone tablets, Loratadine capsules or tablets, Ureteroscopy, Care After Referrals: Saurabh Davis MD [Physician] - 07/22/20 3:15 pm - Discharge Summary/Plan Comment DC Time >30 min.: No - Patient Data Vitals - Most Recent: Last Vital Signs Temp 97.5 F 07/15/20 04:09 Pulse 63 07/15/20 04:09 Resp 17 07/15/20 04:09 BP 134/71 07/15/20 04:09 Pulse Ox 95 07/15/20 04:09 Weight - Most Recent: 89.811 kg I&O - Last 24 hours: Intake & Output 07/14/20 07/15/20 07/15/20 22:59 06:59 14:59 Intake Total 800 1980 Output Total 1400 920 Balance -600 1060 Med Orders - Current: Current Medications Albuterol (Proventil Neb Soln) 2.5 mg NEB ONETIME PRN PRN Reason: Wheezing Ascorbic Acid (Vitamin C) 500 mg PO DAILY KIKO Diphenhydramine HCl (Benadryl) 50 mg IVPUSH Q6H PRN PRN Reason: itching/swelling Lactated Ringer's (Ringers, Lactated) 1,000 mls @ 100 mls/hr IV Q10H KIKO Last Admin: 07/15/20 02:34 Dose: 100 mls/hr Documented by: Loratadine (Claritin) 10 mg PO DAILY KIKO Last Admin: 07/14/20 14:36 Dose: 10 mg Documented by: Methylprednisolone Sodium Succinate (Solu-Medrol) 40 mg IVPUSH Q6H [facility] Last Admin: 07/15/20 03:35 Dose: 40 mg Documented by: Nicotine (Habitrol) 14 mg TRDERM DAILY [facility] Last Admin: 07/14/20 14:49 Dose: 14 mg Documented by: Ondansetron HCl (Zofran) 4 mg IVPUSH ONETIME PRN PRN Reason: Nausea/Vomiting Prednisone (Prednisone) 40 mg PO ONETIME ONE Stop: 07/15/20 12:46 Sodium Chloride (Saline Flush) 2.5 ml FLUSH ASDIRECTED PRN PRN Reason: Keep Vein Open Discontinued Medications Atropine Sulfate (Atropine 0.1 Mg/Ml) 0.5 mg IVPUSH ASDIRECTED PRN PRN Reason: Hypo-perfusion Atropine Sulfate (Atropine 0.1 Mg/Ml) 1 mg IVPUSH ASDIRECTED PRN PRN Reason: Hypo-Perfusion Dexamethasone (Dexamethasone) Confirm Administered Dose 20 mg .ROUTE .STK-MED ONE Stop: 07/14/20 09:18 Dextrose/Water (Dextrose 50% In Water) 50 ml IVPUSH ASDIRECTED PRN PRN Reason: Hypoglycemia Diphenhydramine HCl (Benadryl) 25 mg PO .ONETIME KIKO Diphenhydramine HCl (Benadryl) 25 mg IVPUSH ONETIME ONE Stop: 07/14/20 13:56 Last Admin: 07/14/20 14:35 Dose: 25 mg Documented by: Ephedrine Sulfate (Ephedrine Sulfate) Confirm Administered Dose 50 mg .ROUTE .STK-MED ONE Stop: 07/14/20 09:00 Epinephrine HCl (Epinephrine 1:10,000) 1 mg IVPUSH ASDIRECTED PRN PRN Reason: ACLS Guidelines Fentanyl (Sublimaze) Confirm Administered Dose 100 mcg .ROUTE .STK-MED ONE Stop: 07/14/20 07:08 Fentanyl (Sublimaze) 50 mcg IVPUSH Q5M PRN PRN Reason: Pain Last Admin: 07/14/20 10:47 Dose: 50 mcg Documented by: Glycopyrrolate (Robinul) Confirm Administered Dose 0.6 mg .ROUTE .STK-MED ONE Stop: 07/14/20 09:28 Hydromorphone HCl (Dilaudid) 0.25 mg IVPUSH .Q5MIN PRN PRN Reason: Pain (severe 7-10) Stop: 07/15/20 07:58 Lactated Ringer's (Ringers, Lactated) 1,000 mls @ 100 mls/hr IV ASDIRECTED KIKO Last Admin: 07/14/20 07:10 Dose: 100 mls/hr Documented by: Cefazolin Sodium/Dextrose 1 gm (/ Premix) 50 mls @ 100 mls/hr IV ONCALL ONE Stop: 07/14/20 00:30 Last Admin: 07/14/20 14:18 Dose: Not Given Documented by: Cefazolin Sodium/Dextrose (Ancef) Confirm Administered Dose 50 mls @ as directed .ROUTE .STK-MED ONE Stop: 07/14/20 07:27 Acetaminophen (Ofirmev) Confirm Administered Dose 100 mls @ as directed .ROUTE .STK-MED ONE Stop: 07/14/20 08:33 Famotidine 20 mg/ Sodium (Chloride) 10 mls @ 300 mls/hr IV ONETIME ONE Stop: 07/14/20 14:16 Last Admin: 07/14/20 14:35 Dose: 300 mls/hr Documented by: Iopamidol (Isovue-M 200 (41%)) Confirm Administered Dose 20 ml .ROUTE .STK-MED ONE Stop: 07/14/20 08:55 Iopamidol (Isovue-M 200 (41%)) Confirm Administered Dose 20 ml .ROUTE .STK-MED ONE Stop: 07/14/20 09:58 Iopamidol (Isovue-M 200 (41%)) Confirm Administered Dose 20 ml .ROUTE .STK-MED ONE Stop: 07/14/20 09:59 Ketorolac Tromethamine (Toradol) Confirm Administered Dose 30 mg .ROUTE .STK-MED ONE Stop: 07/14/20 09:18 Lidocaine HCl (Xylocaine-Mpf 1%) Confirm Administered Dose 5 ml .ROUTE .STK-MED ONE Stop: 07/14/20 07:09 Midazolam HCl (Versed 1 Mg/Ml) Confirm Administered Dose 2 mg .ROUTE .STK-MED ONE Stop: 07/14/20 07:08 Naloxone HCl (Narcan) 0.1 mg IVPUSH ASDIRECTED PRN PRN Reason: Respiratory Depression Ondansetron HCl (Zofran) Confirm Administered Dose 4 mg .ROUTE .STK-MED ONE Stop: 07/14/20 07:09 Propofol (Diprivan 20 Ml) Confirm Administered Dose 200 mg .ROUTE .STK-MED ONE Stop: 07/14/20 07:08 Rocuronium [place] (Rocuronium Reno) Confirm Administered Dose 50 mg .ROUTE .STK-MED ONE Stop: 07/14/20 08:23 Sodium Chloride (Normal Saline) 10 ml IV ASDIRECTED PRN PRN Reason: IV Use Sodium Chloride (Saline Flush) 10 ml FLUSH ASDIRECTED PRN PRN Reason: Keep Vein Open
[2020-07-15 10:09] VITALS: BP 144/70; PULSE 65
[2020-07-15] MEDS: Nicotine 14 MG/24 Hr Patch TRDERM SCH (10:10)
[2020-07-15] MEDS: Loratadine 10 MG Tab PO SCH (10:10)
[2020-07-15] MEDS ORDERED: predniSONE 20 MG Tab PO ONE (12:45)
== END 2020-07-15 10:30 | disposition home or self-care (01) ==
LOC: MW.SDS 06:44 → MW.MS 13:35
PROVIDERS: ADMIT Student in an Organized Health Care Education/Training Program; ATTEND Urology
DX: C66.1 Malignant neoplasm of right ureter (principal); T78.3XXA Angioneurotic edema, initial encounter; T39.395A Adverse effect of other nonsteroidal anti-inflammatory drugs [NSAID], initial encounter; F41.9 Anxiety disorder, unspecified; F32.9 Major depressive disorder, single episode, unspecified; K21.9 Gastro-esophageal reflux disease without esophagitis; F17.210 Nicotine dependence, cigarettes, uncomplicated; Z86.73 Personal history of transient ischemic attack (TIA), and cerebral infarction without residual deficits; Z88.5 Allergy status to narcotic agent; Z88.6 Allergy status to analgesic agent
CPT/HCPCS: 52354; 88305; 96374; 96376; A9270; C1769; G0378; J0131; J0330; J0690; J1100; J1200; J1885; J2001; J2250; J2704; J2920; J3010; J3490; J7050; J7120; Q9966; 00912; 99217; 99218; J2405